=== PATIENT | male | born 1975 | race Caucasian/White ===

== ENCOUNTER 2017-06-23 14:25 | Emergency (ER) | payer BC, OTHER ==
[~2017-06-23] VITALS: Ht 180.3 cm; Wt 81.7 kg
[~2017-06-23 14:25] MED LIST: FAMC1TAB PO; LPR25 PO; NAPR1CAP12 PO; NIAC500T7 PO; SIMV20TA5 PO
[2017-06-23 14:33] VITALS: TEMP 36.5; Ht 180.3 cm; Wt 81.7 kg
[2017-06-23] MEDS ORDERED: ONDANSETRON INJ 2 MG/ML 2 ML VIAL IV STA (14:49)
--- NOTE | 2017-06-23 14:53 | EMERGENCY ROOM VISIT NOTE ---
History First contact with patient: 14:40 Chief Complaint: KIDNEY STONE Stated Complaint: SEVERE KIDNEY PAIN, POSSIBLE KIDNEY STONE History of Present Illness The patient is a 42 year old male who presents to the Emergency Room with complaints of sudden onset of left flank pain that he describes as a sharp, stabbing sensation. He has not taken anything for pain. He also reports urinary frequency. He denies any hematuria. No fever or chills. He denies any nausea or vomiting. The patient has a history of kidney stones and says this feels similar. Review of Systems 10 system review performed and negative unless noted in HPI or below Past Medical/Surgical History Kidney stones, hypertension, hyperlipidemia Social History Smoking Status: Never Smoker Marital Status: Occupation Status: employed Current/Historical Medications Scheduled Famciclovir (Famciclovir), 125 MG PO DAILY Lisinopril (Zestril), 10 MG PO DAILY Metoprolol Tartrate (Lopressor), 25 MG PO DAILY Simvastatin (Zocor), 20 MG PO QPM Tamsulosin Hcl (Flomax), 1 CAP PO DAILY Scheduled PRN Naproxen Sodium (Aleve), 660 MG PO Q12 PRN for Pain Oxycodone/Acetaminophen 5MG/325MG (Percocet 5MG/325MG), 1-2 TABS PO Q4H PRN for Pain Promethazine Hcl (Phenergan), 25 MG PO Q6H PRN for Nausea Physical Exam Vital Signs Date Time Temp Pulse Resp B/P (MAP) Pulse Ox O2 Delivery O2 Flow Rate FiO2 06/23/17 19:38 63 18 151/85 94 06/23/17 17:40 61 18 139/83 94 Room Air 06/23/17 15:06 97 18 99 Room Air 06/23/17 14:33 36.5 86 20 99 Room Air Physical Exam VITALS: Vitals are noted on the nurse's note and reviewed by myself. Vital signs stable. GENERAL: 42-year-old male, in obvious discomfort,, in no acute distress, nondiaphoretic, well-developed well-nourished. SKIN: The skin was without rashes, erythema, edema, or bruising. HEAD: Normocephalic atraumatic. NECK: No JVD. HEART: Regular rate and rhythm without murmurs gallops or rubs. LUNGS: Clear to auscultation bilaterally without wheezes, rales or rhonchi. No accessory muscle use. ABDOMEN: Positive bowel sounds x 4.Soft, nontender, without organomegaly. No guarding or rebound tenderness. Left-sided CVA tenderness noted. MUSCULOSKELETAL: No muscle atrophy, erythema, or edema noted. Strength 5/5 throughout. NEURO: Patient was alert and oriented to person place and time. Normal sensation to touch. No focal neurological deficits. Medical Decision & Procedures ER Provider Diagnostic Interpretation: CT abdomen and pelvis without contrast IMPRESSION: 1. Right-sided nephrolithiasis 2. 6 mm distal left ureteral calculus with minimal secondary obstructive changes 3. Normal appendix 4. Colonic diverticulosis. Minimal infiltration of the peridiverticular fat at the sigmoid level 5. Fat-containing left inguinal hernia Electronically signed by: Augustine Medley M.D. 06/23/2017 3:29 PM Dictated Date/Time: 06/23/2017 3:22 PM The status of this report is Signed. Draft = Not yet reviewed or approved by Radiologist. Signed = Reviewed and approved by Radiologist. Laboratory Results 06/23/17 14:50 Red Blood Count 5.58, Mean Corpuscular Volume 88.4, Mean Corpuscular Hemoglobin 31.0, Mean Corpuscular Hemoglobin Concent 35.1, Mean Platelet Volume 10.0, Neutrophils (%) (Auto) 53.3, Lymphocytes (%) (Auto) 34.2, Monocytes (%) (Auto) 10.4, Eosinophils (%) (Auto) 1.4, Basophils (%) (Auto) 0.5, Neutrophils # (Auto ) 5.36, Lymphocytes # (Auto) 3.44, Monocytes # (Auto) 1.05, Eosinophils # (Auto ) 0.14, Basophils # (Auto) 0.05 06/23/17 14:50 Test 06/23/17 14:50 06/23/17 17:44 White Blood Count 10.06 K/uL (4.8-10.8) Red Blood Count 5.58 M/uL (4.7-6.1) Hemoglobin 17.3 g/dL (14.0-18.0) Hematocrit 49.3 % (42-52) Mean Corpuscular Volume 88.4 fL (80-100) Mean Corpuscular Hemoglobin 31.0 pg (25-34) Mean Corpuscular Hemoglobin Concent 35.1 g/dl (32-36) Platelet Count 279 K/uL (130-400) Mean Platelet Volume 10.0 fL (7.4-10.4) Neutrophils (%) (Auto) 53.3 % Lymphocytes (%) (Auto) 34.2 % Monocytes (%) (Auto) 10.4 % Eosinophils (%) (Auto) 1.4 % Basophils (%) (Auto) 0.5 % Neutrophils # (Auto) 5.36 K/uL (1.4-6.5) Lymphocytes # (Auto) 3.44 K/uL (1.2-3.4) Monocytes # (Auto) 1.05 K/uL (0.11-0.59) Eosinophils # (Auto) 0.14 K/uL (0-0.5) Basophils # (Auto) 0.05 K/uL (0-0.2) RDW Standard Deviation 42.3 fL (36.4-46.3) RDW Coefficient of Variation 13.1 % (11.5-14.5) Immature Granulocyte % (Auto) 0.2 % Immature Granulocyte # (Auto) 0.02 K/uL (0.00-0.02) Anion Gap 6.0 mmol/L (3-11) Est Creatinine Clear Calc Drug Dose 72.2 ml/min Estimated GFR () 70.9 Estimated GFR (Non- 61.2 BUN/Creatinine Ratio 9.7 (10-20) Calcium Level 9.2 mg/dl (8.5-10.1) Urine Color YELLOW Urine Appearance CLEAR (CLEAR) Urine pH 6.0 (4.5-7.5) Urine Specific [place] 1.025 (1.000-1.030) Urine Protein TRACE (NEG) Urine Glucose (UA) NEG (NEG) Urine Ketones TRACE (NEG) Urine Occult Blood 3+ (NEG) Urine Nitrite NEG (NEG) Urine Bilirubin NEG (NEG) Urine Urobilinogen NEG (NEG) Urine Leukocyte Esterase NEG (NEG) Urine Bacteria (Auto) NEG (NEG) Urine RBC 0-4 /hpf (0-4) Urine WBC 0 /hpf (0-5) Urine Epithelial Cells 10-20 /lpf (0-5) Urine Bacteria NEG (NEG) Urine Hyaline Casts 1-5 /lpf (0-5) Urine Mucus PRESENT (NONE PRSENT) Urine Yeast (Auto) (NONE PRSENT) Medications Administered Medications (Trade) Dose Ordered Sig/Niesha Route Start Time Stop Time Status Last Admin Dose Admin Sodium Chloride 1,000 ml @ 999 mls/hr Q1H1M ONCE IV 06/23/17 15:00 06/23/17 16:00 DC 06/23/17 15:00 999 MLS/HR Hydromorphone HCl (Dilaudid Inj) 1 mg ONE ONCE IV 06/23/17 15:00 06/23/17 15:01 DC 06/23/17 15:03 1 MG Ondansetron HCl (Zofran Inj) 4 mg NOW STAT IV 06/23/17 14:49 06/23/17 14:51 DC 06/23/17 15:04 4 MG Ketorolac Tromethamine (Toradol Inj) 30 mg NOW STAT IV 06/23/17 15:21 06/23/17 15:22 DC 06/23/17 15:54 30 MG Hydromorphone HCl (Dilaudid Inj) 2 mg NOW STAT IV 06/23/17 15:43 06/23/17 15:45 DC 06/23/17 15:50 2 MG Sodium Chloride 1,000 ml @ 999 mls/hr Q1H1M ONCE IV 06/23/17 16:00 06/23/17 17:00 DC 06/23/17 17:43 999 MLS/HR Oxycodone/ Acetaminophen (Percocet 5/ 325MG Home Pack) 1 homepack UD ONCE PO 06/23/17 19:15 06/23/17 19:16 DC 06/23/17 19:37 1 HOMEPACK ED Course Patient was seen and examined Vital signs including blood pressure were reviewed medications list was verified with patient Labs were obtained, and a saline lock was established The patient was medicated with Dilaudid and Zofran. He was hydrated with 1 L of normal saline. Upon reevaluation, the patient was still having significant pain. He was given an additional dose of Dilaudid 2 mg IV. He was also order Toradol 30 mg IV. We thoroughly reviewed his results. He voiced understanding and is comfortable being discharged home. He was also given a home pack of Percocet. I reviewed discharge instructions the patient. They voiced understanding and had no further questions. Medical Decision Differential diagnosis: Kidney stone, UTI, pyelonephritis, interstitial cystitis , diverticulitis This patient is a 42-year-old male presents emergency department with left flank pain. He has a history of stones. On exam, he was obviously uncomfortable. His abdomen was benign. Patient has a distal 6 mm stone in the left ureter, which explains his symptoms. There are no signs of infection. Urinalysis is clean. There is no leukocytosis. The patient does have diverticulosis with questionable mild stranding in the area. I do not suspect diverticulitis as he has not had any GI symptoms or fever. He was notified of this result. The patient had excellent pain relief in the emergency department. He was hydrated with 2 L of saline. I believe he is stable to be discharged home with close follow-up. He is in agreement with this plan. He agrees to return to the emergency department with any new, worsening or concerning symptoms This chart was completed in part utilizing [employer] Voice Recognition software. Attempts were made to minimize the grammatical errors, random word insertions, pronoun errors and incomplete sentences. Any formal questions or concerns about the content, text or information contained within the body of this dictation should be directly addressed to the provider for clarification. Medication Reconcilliation Current Medication List: was personally reviewed by me Blood Pressure Screening Patient's blood pressure: Elevated blood pressure Blood pressure disposition: Elevated BP felt to be situational Impression Primary Impression: Ureteral calculus, left Departure Information Dispostion Home / Self-Care Condition GOOD Prescriptions Tamsulosin Hcl (FLOMAX) 0.4 Mg Cap 1 CAP PO DAILY for 7 Days, #7 CAP Prov: Sofya Solis PA-C 06/23/17 Promethazine Hcl (Phenergan) 25 Mg Tab 25 MG PO Q6H Y for Nausea, #20 TAB Prov: Sofya Solis PA-C 06/23/17 Oxycodone/Acetaminophen 5MG/325MG (PERCOCET 5MG/325MG) Tab 1-2 TABS PO Q4H Y for Pain, #15 TAB For Initial Treatment Prov: Sofya Solis PA-C 06/23/17 Referrals Zion Conner D.O. (PCP) Jero Oneill M.D. Patient Instructions Kidney Stones, My [facility] Additional Instructions You were evaluated in the emergency department for flank pain and urinary symptoms. You have a 6 mm kidney stone in the lower left ureter. Ibuprofen 600 mg every 6 hours Percocet 1-2 tabs every 4 hours for severe pain. Do not drink alcohol or drive while taking this medication. This may be taken with ibuprofen, but avoid Tylenol. Please take Flomax 1 tab daily for 1 week It is important to stay well-hydrated. Increase fluids over the next several days. Please take Phenergan 1 tab every 6 hours as needed for nausea Please follow-up with your primary care physician in addition to the urologist. A number has been provided. Do not hesitate to return to the emergency department with any new, worsening or concerning symptoms; especially, fever, uncontrolled pain or vomiting Work Instructions Return To Work: 2 days
[2017-06-23] MEDS ORDERED: SODIUM CHLORIDE 0.9% 1000ML 1,000 ML IV ONE ×2 (15:00→16:00)
[2017-06-23] MEDS ORDERED: HYDROmorphone INJ 1 MG/ML SYR IV ONE ×2 (15:00→15:30)
[2017-06-23 15:02] LABS: BASO % 0.5 %; BASO ABS # 0.05 K/uL (0-0.2); EOS % 1.4 %; EOS ABS # 0.14 K/uL (0-0.5); HEMATOCRIT 49.3 % (42-52); HEMOGLOBIN 17.3 g/dL (14.0-18.0); IG# 0.02 K/uL (0.00-0.02); LYMPH % 34.2 %; LYMPH ABS # 3.44 K/uL (1.2-3.4); MEAN CELL VOLUME 88.4 fL (80-100); MEAN CORPUSCULAR HGB CONC 35.1 g/dl (32-36); MONO % 10.4 %; MONO ABS # 1.05 K/uL (0.11-0.59); NEUT % 53.3 %; NEUT ABS # 5.36 K/uL (1.4-6.5); PLATELET COUNT 279 K/uL (130-400); RED CELL DISTRIBUTION WIDTH CV 13.1 % (11.5-14.5); RED CELL DISTRIBUTION WIDTH SD 42.3 fL (36.4-46.3); WHITE BLOOD COUNT 10.06 K/uL (4.8-10.8)
[2017-06-23] MEDS ORDERED: LISI-461 PO (15:07)
[2017-06-23 15:18] LABS: CALCIUM 9.2 mg/dl (8.5-10.1); CREATININE 1.39 mg/dl (0.60-1.40); POTASSIUM 3.8 mmol/L (3.5-5.1)
[2017-06-23] MEDS ORDERED: KETOROLAC TROMETHAMINE 30 MG/ML VIAL IV STA (15:21)
--- NOTE | 2017-06-23 15:30 | DIAGNOSTIC IMAGING REPORT ---
CT SCAN OF THE ABDOMEN AND PELVIS WITHOUT CONTRAST CLINICAL HISTORY: Left flank pain COMPARISON STUDY: No previous studies for comparison. TECHNIQUE: CT scan of the abdomen and pelvis was performed from the lung bases to the proximal femurs. Images are reviewed in the axial, sagittal, and coronal planes. IV contrast was not administered for this examination. A dose lowering technique was utilized adhering to the principles of ALARA. CT DOSE: 1092.10 mGycm FINDINGS: Lower chest: There are mild basilar atelectatic changes. Liver: There is hepatic steatosis. No focal masses are visualized. Gallbladder: Unremarkable. Spleen: Normal in size and attenuation. Pancreas: Unremarkable. Adrenal glands: Unremarkable. Kidneys: There are 2 mildly hyperdense subcentimeter renal masses measuring 6 mm and 7 mm respectively. 3 right renal calculi are visualized, the largest of which measures 3 mm. There is a 6 mm distal left ureteral calculus just proximal to the UVJ. There is mild secondary ureteral dilatation. There is minor secondary hydroureteronephrosis. Bowel: There are no transition zones indicate bowel obstruction. The appendix appears normal. There is colonic diverticulosis. There is very minimal infiltration of the peridiverticular fat at the sigmoid level. Very minimal diverticulitis cannot be excluded. Peritoneum: There is no intraperitoneal free air or abdominal ascites. There is a fat-containing left inguinal hernia Vasculature: The abdominal aorta is normal in course and caliber. Adenopathy: None. Pelvic viscera: The bladder, and pelvic viscera are unremarkable. Skeletal structures: No destructive osseous lesions are seen. IMPRESSION: 1. Right-sided nephrolithiasis 2. 6 mm distal left ureteral calculus with minimal secondary obstructive changes 3. Normal appendix 4. Colonic diverticulosis. Minimal infiltration of the peridiverticular fat at the sigmoid level 5. Fat-containing left inguinal hernia Electronically signed by: Augustine Medley M.D. 06/23/2017 3:29 PM Dictated Date/Time: 06/23/2017 3:22 PM
[2017-06-23] MEDS ORDERED: HYDROmorphone INJ 2 MG/ML SYR/VIAL IV STA (15:43)
[2017-06-23] MEDS ORDERED: PROM25TA9 PO (19:09)
[2017-06-23] MEDS ORDERED: OXYC-57 PO (19:09)
[2017-06-23] MEDS ORDERED: TAMS0.4C38 PO (19:11)
[2017-06-23] MEDS ORDERED: PERCOCET HOME PACK PO ONE (19:15)
[2017-06-23 19:38] VITALS: BP 151/85; PULSE 63; O2SAT 94
== END 2017-06-23 19:40 | disposition home or self-care (01) ==
LOC: C.EDB 14:26 → C.EDD 19:40
DX: N20.1 Calculus of ureter (principal); K57.30 Diverticulosis of large intestine without perforation or abscess without bleeding; I10 Essential (primary) hypertension; E78.5 Hyperlipidemia, unspecified; Z87.442 Personal history of urinary calculi

== ENCOUNTER 2023-03-09 10:10 | Inpatient (IN) ==
[2023-03-09] MEDS ORDERED: SODIUM CHLORIDE 0.9% 500 ML IV STA (11:20)
[2023-03-09 12:13] LABS: Appearance Urine Cloudy (Clear); Bacteria Urine Automated 1+ (Negative); Blood Urine 3+ (Negative); Color Urine Orange; Glucose Urine UA Negative (Negative); Ketones Urine 1+ (Negative); Leukocyte Esterase Urine 2+ (Negative); Nitrite Urine Positive (Negative); Protein Urine 2+ (Negative); Specific Gravity Urine 1.023 (1.000-1.030); Urobilinogen Urine Negative (Negative); WBC Urine Automated >30 /hpf (0-5)
[2023-03-09 12:19] LABS: Bilirubin Urine 1+ (Negative)
[2023-03-09 12:23] LABS: Basophils # (auto) 0.04 K/uL (0.00-0.20); Basophils % (auto) 0.3 %; Eosinophils # (auto) 0.02 K/uL (0.00-0.50); Eosinophils % (auto) 0.1 %; Hematocrit (blood only) 49.3 % (42.0-52.0); Immature Granulocytes # (auto) 0.07 K/uL (0.01-0.20); Immature Granulocytes % (auto) 0.5 %; Lymphocytes # (auto) 0.65 K/uL (1.20-3.40); Lymphocytes % (auto) 4.8 %; Mean Corpuscular Hemoglobin 28.3 pg (25.0-34.0); Mean Corpuscular Hgb Conc 34.5 g/dL (32.0-36.0); Mean Corpuscular Volume 82.2 fL (80.0-100.0); Monocytes # (auto) 0.86 K/uL (0.11-0.59); Monocytes % (auto) 6.3 %; Neutrophils # (auto) 12.03 K/uL (1.40-6.50); Platelet Count 244 K/uL (130-400); RDW Coefficient of Variation 13.4 % (11.5-14.5); RDW Standard Deviation 39.9 fL (36.4-46.3); White Blood Count 13.67 K/ul (4.8-10.8)
[2023-03-09 12:37] LABS: Albumin Globulin Ratio 1.2 (0.9-2); Albumin Level 4.4 gm/dl (3.4-5.0); BUN Creatinine Ratio 15.8 (10-20); Bilirubin,Total 2.2 mg/dl (0.2-1.0); Calcium 9.3 mg/dl (8.6-10.3); Creatinine Clr Calc Pharmacy 56.6 ml/min; Est GFR (African American) 46.9 ml/min; Est GFR (Non-African American) 40.5 ml/min; Globulin 3.7 gm/dl (2.5-4.0); Potassium 4.5 mmol/L (3.5-5.1); Total Protein 8.1 gm/dl (6.0-8.3)
[2023-03-09] MEDS ORDERED: OPTIRAY 320 100ml IV ONE (13:31)
--- NOTE | 2023-03-09 13:52 | CT Scan Report ---
ABDOMEN AND PELVIS CT WITH IV CONTRAST CT DOSE: 1596.4 mGy.cm HISTORY: Acute right-sided flank pain with nausea and vomiting RIGHT FLANK PAIN, N/V TECHNIQUE: Multiaxial CT images of the abdomen and pelvis were performed following the IV administrat ion of 93 cc of Optiray, A dose lowering technique was utilized adhering to the principles of ALARA. COMPARISON STUDY: 01/04/2022 FINDINGS: Partially imaged consolidative patchy bibasilar opacities, most pronounced in the anteromed ial right lung on image 1 series 3. No free air. Unremarkable spleen, pancreas and adrenal glands. Ch olelithiasis without CT evidence of acute cholecystitis. Hepatic steatosis. Patency of the hepatic an d portal veins. Mild nonspecific bilateral perinephric stranding. Punctate left renal calculus. There are a few subce ntimeter hypodensities within the kidneys which are too small to characterize. 9 mm intermediate atte nuating lesion of the superior pole right kidney is stable in size from the prior study. Punctate non obstructing calculus of the inferior pole right kidney. There is an 8 x 4 x 7 mm calculus within the right ureteropelvic junction. Moderate urothelial thickening and asymmetric adjacent inflammatory str anding without hydronephrosis. Decompressed urinary bladder. Prostate is upper limits of normal in si ze. Small fat filled left inguinal hernia. Unremarkable aorta. There is no bowel obstruction or bowel wall thickening. Colonic diverticulosis. No ascites or free ai r. Normal appendix. Small fat filled umbilical hernia. No acute fracture. Bilateral hip arthroplastie s. IMPRESSION: 1. 8 mm calculus within the right ureteropelvic junction. There is asymmetric right-sided perinephric inflammatory stranding without significant hydronephrosis. 2. Nonobstructing bilateral nephrolithiasis. 3. Mild patchy right lung opacities may represent a mild infectious or inflammatory pneumonitis. 4. No bowel obstruction or bowel wall thickening. 5. Cholelithiasis. ACT 112: Negative or not required by law. The above report was generated using voice recognition software. It may contain grammatical, syntax o r spelling errors. Electronically signed by: Bartolome Garcia M.D. 03/09/2023 1:50 PM
--- NOTE | 2023-03-09 15:10 | Emergency Department Note ---
History of Present Illness General Chief complaint: Urinary Symptoms Stated complaint: DOC REF,KIDNEY STONE,CHILLS Time Seen by Provider: 03/09/23 14:56 History of Present Illness Patient is a 47-year-old male with past medical history significant for hypertension, GERD and dyslipidemia, and past history of kidney stones who presents emergency department from an outpatient urgent care center for evaluation of fever, chills, vomiting and flank pain. Patient reports symptoms started on Wednesday 3 days ago with right-sided flank pain, radiating into the groin and difficulty voiding. The flank pain and the urinary symptoms resolved, but he subsequently developed fever, chills, nausea, vomiting, malaise and body aches. Temperature max at home was 100.4 F but was reportedly 103 degrees at urgent care prior to arrival in the emergency department. He has no further flank pain. Reports dark urine, but no gross hematuria. He has not been able to eat or drink anything for the last 3 days and he feels dehydrated. He has had kidney stones in the past which required stenting and lithotripsy. Home Medications Medication Instructions Recorded Confirmed Type famciclovir 125 mg tablet 125 mg PO QAM 07/06/20 03/09/23 History metoprolol tartrate 25 mg tablet 25 mg PO QAM 07/06/20 03/09/23 History pantoprazole 40 mg tablet,delayed 40 mg PO QAM 07/06/20 03/09/23 History release albuterol sulfate 90 mcg/actuation 2 inh inhalation Q6H PRN shortness 07/09/20 03/09/23 Rx aerosol inhaler of breath or wheezing or cough #18 grams inhalational spacing device #1 ea 07/09/20 Rx (Aerochamber Plus Z Stat spacer) atorvastatin 20 mg tablet 20 mg PO DAILY 03/09/23 03/09/23 History lisinopril 20 mg tablet 20 mg PO DAILY 03/09/23 03/09/23 History tamsulosin 0.4 mg capsule (Flomax) 0.4 mg PO PM 03/09/23 03/09/23 History Allergies Allergy/AdvReac Type Severity Reaction Status Date / Time No Known Allergies Unverified 07/06/20 21:12 Past Med/Surg History Medical History Hyperlipidemia GERD (gastroesophageal reflux disease) Hypertension Surgical History History of total right hip arthroplasty History of total left hip arthroplasty Social History Smoking Status: Never smoker Hx Alcohol Use: Yes Hx Substance Use: No Preferred Language: Greenlandic Communication Ability: Effective Chief Ii Dispatcher Required: No Beliefs That Will Affect Care: None marital status: Current Living Situation: Spouse Feels Safe at Home: Yes Assistive Devices: None Review of Systems A total of 10 systems reviewed and were otherwise negative Physical Exam Vital Signs Vital Signs - 24 hr 03/09/23 11:17 03/09/23 16:03 03/09/23 16:20 Temperature 37.8 C H 36.9 C Temperature Source Temporal Artery Scan Oral Pulse Rate 106 H 74 Pulse Rate [Apical] 101 H Pulse Rhythm Regular Pulse Rhythm [Apical] Pulse Strength [Apical] Respiratory Rate 20 20 19 Respiratory Effort / Characteristics Non-Labored Spontaneous Non-Labored Spontaneous Respiratory Depth Normal Normal Respiratory Pattern Regular Blood Pressure 130/98 124/70 Blood Pressure [Left Arm] Blood Pressure [Right Arm] 124/79 Blood Pressure Mean 108 Blood Pressure Mean [Left Arm] Blood Pressure Mean [Right Arm] 94 Blood Pressure Position [Left Arm] Blood Pressure Position [Right Arm] Semi-fowlers Pulse Oximetry 97 98 95 Oxygen Delivery Method Room Air Room Air Room Air Oxygen Flow Rate Sepsis Recent Fever Within 48 Hours No Sepsis New/Unexplained Change in Mental Status No Sepsis Action Taken by Nursing No Action Required 03/09/23 17:06 03/09/23 17:10 03/09/23 17:20 Temperature 36.6 C Temperature Source Temporal Artery Scan Pulse Rate Pulse Rate [Apical] 105 H 98 H 94 H Pulse Rhythm Pulse Rhythm [Apical] Regular Regular Regular Pulse Strength [Apical] Normal Normal Normal Respiratory Rate 14 18 18 Respiratory Effort / Characteristics Non-Labored Spontaneous Non-Labored Spontaneous Non-Labored Spontaneous Respiratory Depth Normal Normal Normal Respiratory Pattern Regular Regular Regular Blood Pressure Blood Pressure [Left Arm] 90/64 L 102/61 92/64 L Blood Pressure [Right Arm] Blood Pressure Mean Blood Pressure Mean [Left Arm] 72 74 73 Blood Pressure Mean [Right Arm] Blood Pressure Position [Left Arm] Semi-fowlers Semi-fowlers Semi-fowlers Blood Pressure Position [Right Arm] Pulse Oximetry 94 94 95 Oxygen Delivery Method Nasal Cannula Nasal Cannula Nasal Cannula Oxygen Flow Rate 2 2 2 Sepsis Recent Fever Within 48 Hours Sepsis New/Unexplained Change in Mental Status Sepsis Action Taken by Nursing 03/09/23 17:30 03/09/23 17:40 03/09/23 17:45 Temperature 38.0 C H 38.0 C H Temperature Source Oral Oral Pulse Rate Pulse Rate [Apical] 88 93 H 85 Pulse Rhythm Pulse Rhythm [Apical] Regular Regular Regular Pulse Strength [Apical] Normal Normal Normal Respiratory Rate 18 18 18 Respiratory Effort / Characteristics Non-Labored Spontaneous Non-Labored Spontaneous Non-Labored Spontaneous Respiratory Depth Normal Normal Normal Respiratory Pattern Regular Regular Regular Blood Pressure Blood Pressure [Left Arm] 94/66 L 100/65 114/84 Blood Pressure [Right Arm] Blood Pressure Mean Blood Pressure Mean [Left Arm] 75 76 94 Blood Pressure Mean [Right Arm] Blood Pressure Position [Left Arm] Semi-fowlers Semi-fowlers Semi-fowlers Blood Pressure Position [Right Arm] Pulse Oximetry 95 95 95 Oxygen Delivery Method Nasal Cannula Nasal Cannula Nasal Cannula Oxygen Flow Rate 2 2 2 Sepsis Recent Fever Within 48 Hours Sepsis New/Unexplained Change in Mental Status Sepsis Action Taken by Nursing 03/09/23 18:00 03/09/23 18:10 03/09/23 18:20 Temperature 38.0 C H Temperature Source Oral Pulse Rate Pulse Rate [Apical] 145 H 141 H 137 H Pulse Rhythm Pulse Rhythm [Apical] Regular Regular Regular Pulse Strength [Apical] Normal Normal Normal Respiratory Rate 20 28 H 20 Respiratory Effort / Characteristics Non-Labored Spontaneous Non-Labored Spontaneous Non-Labored Spontaneous Respiratory Depth Normal Normal Normal Respiratory Pattern Regular Regular Regular Blood Pressure Blood Pressure [Left Arm] 136/78 129/70 105/73 Blood Pressure [Right Arm] Blood Pressure Mean Blood Pressure Mean [Left Arm] 97 89 83 Blood Pressure Mean [Right Arm] Blood Pressure Position [Left Arm] Semi-fowlers Semi-fowlers Semi-fowlers Blood Pressure Position [Right Arm] Pulse Oximetry 95 93 93 Oxygen Delivery Method Nasal Cannula Nasal Cannula Nasal Cannula Oxygen Flow Rate 2 2 3 Sepsis Recent Fever Within 48 Hours Sepsis New/Unexplained Change in Mental Status Sepsis Action Taken by Nursing 03/09/23 18:30 03/09/23 18:40 03/09/23 18:50 Temperature 39.5 C H Temperature Source Oral Pulse Rate Pulse Rate [Apical] 139 H 138 H 136 H Pulse Rhythm Pulse Rhythm [Apical] Regular Regular Regular Pulse Strength [Apical] Normal Normal Normal Respiratory Rate 20 22 20 Respiratory Effort / Characteristics Non-Labored Spontaneous Non-Labored Spontaneous Non-Labored Spontaneous Respiratory Depth Normal Normal Normal Respiratory Pattern Regular Regular Regular Blood Pressure Blood Pressure [Left Arm] 113/74 116/71 105/69 Blood Pressure [Right Arm] Blood Pressure Mean Blood Pressure Mean [Left Arm] 87 86 81 Blood Pressure Mean [Right Arm] Blood Pressure Position [Left Arm] Semi-fowlers Semi-fowlers Semi-fowlers Blood Pressure Position [Right Arm] Pulse Oximetry 94 95 94 Oxygen Delivery Method Nasal Cannula Nasal Cannula Nasal Cannula Oxygen Flow Rate 3 3 3 Sepsis Recent Fever Within 48 Hours Sepsis New/Unexplained Change in Mental Status Sepsis Action Taken by Nursing 03/09/23 19:00 03/09/23 19:10 03/09/23 19:20 Temperature Temperature Source Pulse Rate Pulse Rate [Apical] 134 H 130 H 123 H Pulse Rhythm Pulse Rhythm [Apical] Regular Regular Regular Pulse Strength [Apical] Normal Normal Normal Respiratory Rate 20 18 18 Respiratory Effort / Characteristics Non-Labored Spontaneous Non-Labored Spontaneous Non-Labored Spontaneous Respiratory Depth Normal Normal Normal Respiratory Pattern Regular Regular Regular Blood Pressure Blood Pressure [Left Arm] 105/59 L 106/69 109/70 Blood Pressure [Right Arm] Blood Pressure Mean Blood Pressure Mean [Left Arm] 74 81 83 Blood Pressure Mean [Right Arm] Blood Pressure Position [Left Arm] Semi-fowlers Semi-fowlers Semi-fowlers Blood Pressure Position [Right Arm] Pulse Oximetry 93 93 97 Oxygen Delivery Method Nasal Cannula Nasal Cannula Nasal Cannula Oxygen Flow Rate 3 3 3 Sepsis Recent Fever Within 48 Hours Sepsis New/Unexplained Change in Mental Status Sepsis Action Taken by Nursing 03/09/23 19:30 Temperature 39.1 C H Temperature Source Oral Pulse Rate Pulse Rate [Apical] 117 H Pulse Rhythm Pulse Rhythm [Apical] Regular Pulse Strength [Apical] Normal Respiratory Rate 20 Respiratory Effort / Characteristics Non-Labored Spontaneous Respiratory Depth Normal Respiratory Pattern Regular Blood Pressure Blood Pressure [Left Arm] 107/69 Blood Pressure [Right Arm] Blood Pressure Mean Blood Pressure Mean [Left Arm] 81 Blood Pressure Mean [Right Arm] Blood Pressure Position [Left Arm] Semi-fowlers Blood Pressure Position [Right Arm] Pulse Oximetry 97 Oxygen Delivery Method Nasal Cannula Oxygen Flow Rate 3 Sepsis Recent Fever Within 48 Hours Sepsis New/Unexplained Change in Mental Status Sepsis Action Taken by Nursing CONSTITUTIONAL: Ill, albeit nontoxic-appearing 47-year-old male who is awake and alert and laying on the gurney in no acute distress. Temperature rechecked at time of exam was 37.3 C orally. EYES: Pupils equal, round, reactive to light and accommodation. EOMs intact without nystagmus. Sclera are anicteric. ENT: Tympanic membranes intact, with normal landmarks. External canals are clear. Oral and nasopharynx are clear. Mucous membranes are moist, no lesions, tongue and gums appear normal. CARDIOVASCULAR: Regular rate and rhythm. Peripheral pulses easy to palpable. RESPIRATORY: Breath sounds equal and clear to auscultation . GI: Bowel sounds are present. Abdomen is soft, nontender, nondistended. No organomegaly. No pulsatile masses. No guarding or rebound. MUSCULOSKELETAL: Full range of motion of extremities x 4 with good strength. No cyanosis, edema, joint tenderness or swelling. No deformity. INTEGUMENTARY: No lesions or rash, normal skin turgor. NEUROLOGICAL: Alert, oriented, and cooperative. Cranial nerves, sensation and strength grossly intact. Normal gait. LYMPH: No lymphadenopathy. Course Course The patient was seen and assessed as above. External medical records were reviewed. Orders were implemented in triage prior to my assessment of the patient, including CBC with differential, CMP, urinalysis and CT scan of the abdomen and pelvis with IV contrast. Laboratory studies per my interpretation note a mildly elevated white count at almost 14,000 with left shift. MIGDALIA noted with creatinine of 1.9. Urine is concerning for infection, with hematuria, leukocyte Estrace and is nitrate positive. CT scan per my interpretation notes a an 8 mm calculus at the right UPJ, with an asymmetric right-sided perinephric inflammatory stranding, no significant hydronephrosis. All laboratory and diagnostic imaging studies were discussed with the patient and his significant other. After review of the information above and other included data, I feel the patient requires inpatient evaluation and surgical evaluation by urology. Patient was ordered IV fluid hydration, 2 L bolus of normal saline solution and ceftriaxone 2 g IV. Blood cultures were obtained. He was treated with Zofran 4 mg IV for nausea. A lactic was also collected and was within normal limits. Case was reviewed with attending physician, Dr. Mendez who agreed with the ED work-up. I did notify ED shoe caser of my concern that the patient would require urology evaluation and possible surgical evaluation and/or inpatient stay. Consultation was placed with urology, patient reviewed with KAREN Mcghee. She came to the emergency department and assessed the patient, and plan is to go to the OR. She requested medical admission, [facility] and they will evaluate the patient for admission after the OR. Differential diagnosis: UTI, pyelonephritis, kidney stone, sepsis, dehydration, electrolyte or metabolic abnormality, acute kidney injury, diverticulitis, prostatitis, appendicitis, among others. Administered Medications Diatrizoate Meglumine (Diatrizoate Meglumine 30% 100ml Vial) 100 ml INSTIL UD PRN PRN Reason: Radiology Use Stop: 03/13/23 16:57 Last Admin: 03/09/23 17:09 Dose: 1 ml Documented By: CTY Discontinued Medications Acetaminophen (Acetaminophen 1000 Mg/100 Ml Iv) Confirm Administered Dose 1,000 mg IV .STK-MED ONE Stop: 03/09/23 18:58 Last Admin: 03/09/23 19:10 Dose: Not Given Documented By: AJSofya Sodium Chloride (Nss) 500 mls @ 999 mls/hr IV .Q31M STA Stop: 03/09/23 11:50 Last Admin: 03/09/23 15:25 Dose: Not Given Documented By: HS Sodium Chloride (Nss) 1,000 mls @ 999 mls/hr IV .Q1H1M TREY Stop: 03/09/23 17:11 Last Admin: 03/09/23 15:19 Dose: 999 mls/hr Documented By: Infusion: 03/09/23 15:19 Dose: Infused Documented By: Admin: 03/09/23 15:19 Dose: 999 mls/hr Documented By: HS Ceftriaxone Sodium (Rocephin) 2,000 mg in 50 mls @ 100 mls/hr IV NOW STA Stop: 03/09/23 15:40 Last Admin: 03/09/23 15:53 Dose: 100 mls/hr Documented By: KMO Acetaminophen (Ofirmev) 1,000 mg in 100 mls @ 400 mls/hr IV NOW STA Stop: 03/09/23 19:07 Last Admin: 03/09/23 18:58 Dose: 400 mls/hr Documented By: JAZMYN Ioversol (Optiray 320 100ml) 93 ml IV ONCE ONE Stop: 03/09/23 13:32 Last Admin: 03/09/23 13:31 Dose: 93 ml Documented By: SIVAKUMAR Ondansetron HCl (Ondansetron Inj 2 Mg/Ml 2 Ml Vial) 4 mg IV NOW STA Stop: 03/09/23 15:13 Last Admin: 03/09/23 15:19 Dose: 4 mg Documented By: RICHY Medical Decision Making Differential Diagnosis See ED course. Medical Records Attestation: I reviewed the patient's medical records. Home Medications Current Medication List: was personally reviewed by me Laboratory Data Attestation: I reviewed the patient's lab results. 03/09/23 11:54 03/09/23 11:54 Lab Results 03/09/23 03/09/23 03/09/23 Range/Units 11:54 11:58 15:40 WBC 13.67 H (4.8-10.8) K/ul RBC 6.00 (4.70-6.10) M/uL Hgb 17.0 (14.0-18.0) g/dl Hct 49.3 (42.0-52.0) % MCV 82.2 (80.0-100.0) fL MCH 28.3 (25.0-34.0) pg MCHC 34.5 (32.0-36.0) g/dL RDW Std Deviation 39.9 (36.4-46.3) fL RDW Coeff of Yony 13.4 (11.5-14.5) % Plt Count 244 (130-400) K/uL MPV 10.0 (9.4-12.4) fL Immature Gran % (Auto) 0.5 % Neut % (Auto) 88.0 % Lymph % (Auto) 4.8 % [place] % (Auto) 6.3 % Eos % (Auto) 0.1 % Baso % (Auto) 0.3 % Neut # (Auto) 12.03 H (1.40-6.50) K/uL Lymph # (Auto) 0.65 L (1.20-3.40) K/uL [place] # (Auto) 0.86 H (0.11-0.59) K/uL Eos # (Auto) 0.02 (0.00-0.50) K/uL Baso # (Auto) 0.04 (0.00-0.20) K/uL Immature Gran # (Auto) 0.07 (0.01-0.20) K/uL Sodium 134 L (136-145) mmol/L Potassium 4.5 (3.5-5.1) mmol/L Chloride 100 (98-107) mmol/L Carbon Dioxide 20 L (21-32) mmol/L Anion Gap 14 H (3-11) BUN 30 H (6-23) mg/dl Creatinine 1.90 H (0.6-1.4) mg/dl Est Cr Clr Drug Dosing 56.6 ml/min Est GFR ( Amer) 46.9 ml/min Est GFR (Non-Af Amer) 40.5 ml/min BUN/Creatinine Ratio 15.8 (10-20) Glucose 142 H (70-99(Fasting)) mg/dl Lactate 2.0 (0.4-2.0) mmol/L Calcium 9.3 (8.6-10.3) mg/dl Total Bilirubin 2.2 H (0.2-1.0) mg/dl AST 37 (13-39) U/L ALT 22 (7-52) U/L Alkaline Phosphatase 92 (34-104) U/L Total Protein 8.1 (6.0-8.3) gm/dl Albumin 4.4 (3.4-5.0) gm/dl Globulin 3.7 (2.5-4.0) gm/dl Albumin/Globulin Ratio 1.2 (0.9-2) Urine Color [place] Urine Appearance Cloudy A (Clear) Urine pH 5.0 (4.5-7.5) Ur Specific [place] 1.023 (1.000-1.030) Urine Protein 2+ H (Negative) Urine Glucose (UA) Negative (Negative) Urine Ketones 1+ H (Negative) Urine Blood 3+ H (Negative) Urine Nitrite Positive A (Negative) Urine Bilirubin 1+ H (Negative) Urine Urobilinogen Negative (Negative) Ur Leukocyte Esterase 2+ H (Negative) Urine WBC (Auto) >30 H (0-5) /hpf Urine RBC (Auto) 5-10 H (0-4) /hpf U Hyaline Cast (Auto) 10-30 H (0-5) /lpf U Epithel Cells (Auto) 10-20 H (0-5) /lpf Urine Bacteria (Auto) 1+ H (Negative) Imaging Data Attestation: I personally reviewed and interpreted this imaging study as follows: Radiologist's Impression: Retrograde Pyelogram 03/09/23 00:00 FL retrograde includes kub CLINICAL HISTORY: CYSTO/RETROGRADE STENT RT COMPARISON STUDY: Abdomen and pelvis CT 03/09/2023. FLUOROSCOPY TIME: 19 seconds FLUOROSCOPY IMAGES: 4 Ka,r: 2.8 mGy FINDINGS: Retrograde placement of a right ureteral stent. Only the proximal portion of the stent is identified and appears in good position. IMPRESSION: Fluoroscopic assistance as above. ACT 112: Negative or not required by law. Electronically signed by: Willi Real M.D. 03/09/2023 7:21 PM Abdomen/Pelvis CT 03/09/23 12:[address] WITH IV CONTRAST CT DOSE: 1596.4 mGy.cm HISTORY: Acute right-sided flank pain with nausea and vomiting RIGHT FLANK PAIN, N/V TECHNIQUE: Multiaxial CT images of the abdomen and pelvis were performed following the IV administration of 93 cc of Optiray, A dose lowering technique was utilized adhering to the principles of ALARA. COMPARISON STUDY: 01/04/2022 FINDINGS: Partially imaged consolidative patchy bibasilar opacities, most pronounced in the anteromedial right lung on image 1 series 3. No free air. Unremarkable spleen, pancreas and adrenal glands. Cholelithiasis without CT evidence of acute cholecystitis. Hepatic steatosis. Patency of the hepatic and portal veins. Mild nonspecific bilateral perinephric stranding. Punctate left renal calculus. There are a few subcentimeter hypodensities within the kidneys which are too small to characterize. 9 mm intermediate attenuating lesion of the superior pole right kidney is stable in size from the prior study. Punctate nonobstructing calculus of the inferior pole right kidney. There is an 8 x 4 x 7 mm calculus within the right ureteropelvic junction. Moderate urothelial thickening and asymmetric adjacent inflammatory stranding without hydronephrosis. Decompressed urinary bladder. Prostate is upper limits of normal in size. Small fat filled left inguinal hernia. Unremarkable aorta. There is no bowel obstruction or bowel wall thickening. Colonic diverticulosis. No ascites or free air. Normal appendix. Small fat filled umbilical hernia. No acute fracture. Bilateral hip arthroplasties. IMPRESSION: 1. 8 mm calculus within the right ureteropelvic junction. There is asymmetric right-sided perinephric inflammatory stranding without significant hydronephrosis. 2. Nonobstructing bilateral nephrolithiasis. 3. Mild patchy right lung opacities may represent a mild infectious or inflammatory pneumonitis. 4. No bowel obstruction or bowel wall thickening. 5. Cholelithiasis. ACT 112: Negative or not required by law. The above report was generated using voice recognition software. It may contain grammatical, syntax or spelling errors. Electronically signed by: Bartolome Garcia M.D. 03/09/2023 1:50 PM MDM Narrative See ED course. Impression & Plan Calculus of proximal right ureter, Sepsis secondary to UTI Discharge Plan Visit Data Chief Complaint: Urinary Symptoms Stated Complaint: DOC REF,KIDNEY STONE,CHILLS ED Provider: Harvey Mendez ED Midlevel Provider: Sivakumar Shannon Discharge Problem: Calculus of proximal right ureter, Sepsis secondary to UTI Patient Disposition: Admitted As Inpatient Discharge Instructions Interventions: ED Discharge Assessment Last Done: 03/09/23 16:03 Prescriptions Prescriptions: No Action famciclovir 125 mg tablet 125 mg PO QAM pantoprazole 40 mg tablet,delayed release (DR/EC) 40 mg PO QAM metoprolol tartrate 25 mg tablet 25 mg PO QAM albuterol sulfate 90 mcg/actuation HFA aerosol inhaler 2 inh inhalation Q6H PRN (Reason: shortness of breath or wheezing or cough) Qty: 18 0RF (DME) Aerochamber Plus Z Stat Spacer See Rx Instructions .ROUTE .MEDSUPPLY Qty: 1 0RF Rx Instructions: As directed with albuterol atorvastatin 20 mg tablet 20 mg PO DAILY lisinopril 20 mg tablet 20 mg PO DAILY tamsulosin [Flomax] 0.4 mg capsule 0.4 mg PO PM Rx Instructions: 30 mins after evening meal
[2023-03-09] MEDS ORDERED: cefTRIAXone SODIUM 2,000 MG/50 ML BAG IV STA (15:11)
[2023-03-09] MEDS ORDERED: ONDANSETRON INJ 2 MG/ML 2 ML VIAL IV STA (15:12)
[2023-03-09] MEDS: SODIUM CHLORIDE 0.9% 1,000 ML IV SCH (15:19)
--- NOTE | 2023-03-09 15:57 | Urology Consultation ---
Date of Consultation March 09, 2023 Assessment & Plan (1) Calculus of proximal right ureter: This is a 47-year-old male with history of nephrolithiasis who presented to the emergency department with right flank pain, nausea, vomiting, fever and chills. CT abdomen pelvis demonstrated an 8 mm right UPJ stone Patient with intermittent fever/chills, Tmax 103 earlier today, tachycardic in the emergency department Labs show creatinine 1.9, WBC 13.67, hemoglobin 17.0 Urinalysis suspicious for infection with positive nitrates and bacteria Urine and blood cultures are pending He was given IV ceftriaxone in the emergency department Recommend continue broad-spectrum antibiotics and narrow per sensitivity data when available Currently feels better since arrival and appears pretty well on exam Given his right UPJ stone, fever, leukocytosis, tachycardia and suspected UTI, recommend right ureteral stent placement today - patient agreeable Proceed to the OR today for cystoscopy, retrograde pyelogram and right ureteral stent placement Risks and benefits of procedure to be reviewed with patient by Dr. Oneill Supervising Physician Co-Signing Physician Notes Agree with above. Although he is not having right flank pain, he has other symptoms concerning for an infected kidney stone. We discussed his findings and we will plan for cysto, right ureteral stent placement today. History of Present Illness History of Present Illness This is a 47-year-old male with history of nephrolithiasis who presented to the emergency department this afternoon with several day history of right flank pain, nausea, vomiting, fever and chills. On arrival, temperature was 37.8, tachycardic, but otherwise hemodynamically stable. Lab work showed creatinine 1.90, WBC 13.67, hemoglobin 17.0. Urinalysis suspicious for infection with positive nitrates, 2+ leukocyte esterase, >30 WBC, 5-10 RBC, 1+ bacteria. Urine and blood cultures obtained. CT abdomen and pelvis reviewed and notable for an 8 mm calculus within the right UPJ, right sided perinephric stranding, no significant hydronephrosis, nonobstructing bilateral nephrolithiasis. He was treated with IV fluids, ceftriaxone and ondansetron in the emergency department. Patient seen and examined in the emergency department. He is awake, alert and resting in bed. at bedside. He reports intermittent right flank discomfort since 3-4 days ago. He reports nausea and vomiting at home as well as fever and chills. He was evaluated at urgent care earlier today and had a temperature of 103. No dysuria or hematuria. No chest pain or shortness of breath. He is NPO. Prior history of nephrolithiasis. He had ureteroscopy and laser lithotripsy about 3 to 4 years ago at [facility]. Allergies Allergy/AdvReac Type Severity Reaction Status Date / Time No Known Allergies Unverified 07/06/20 21:12 Home Medications Medication Instructions Recorded Confirmed Type famciclovir 125 mg tablet 125 mg PO QAM 07/06/20 07/06/20 History lisinopril 10 mg tablet 10 mg PO QAM 07/06/20 07/06/20 History metoprolol tartrate 25 mg tablet 25 mg PO QAM 07/06/20 07/06/20 History ondansetron 8 mg disintegrating 8 mg PO Q8H PRN Nausea And Vomiting 07/06/20 07/06/20 History tablet pantoprazole 40 mg tablet,delayed 40 mg PO QAM 07/06/20 07/06/20 History release simvastatin 20 mg tablet 20 mg PO QAM 07/06/20 07/06/20 History albuterol sulfate 90 mcg/actuation 2 inh inhalation Q6H PRN shortness 07/09/20 Rx aerosol inhaler of breath or wheezing or cough #18 grams inhalational spacing device #1 ea 07/09/20 Rx (Aerochamber Plus Z Stat spacer) oxycodone 5 mg tablet 5 mg PO Q6H PRN pain #14 tabs 01/04/22 Rx tamsulosin 0.4 mg capsule (Flomax) 0.4 mg PO DAILY #10 caps 01/04/22 Rx Patient History Medical History Hyperlipidemia GERD (gastroesophageal reflux disease) Hypertension Surgical History History of total right hip arthroplasty History of total left hip arthroplasty Social History Smoking Status: Never smoker Hx Alcohol Use: Yes Hx Substance Use: No Preferred Language: Albanian Communication Ability: Effective Enrollment Management Manager Required: No Beliefs That Will Affect Care: None marital status: Current Living Situation: Spouse Feels Safe at Home: Yes Assistive Devices: None Review of Systems Review of Systems: All systems reviewed & are unremarkable except as noted in HPI & below Physical Exam 2 Physical Exam: General: no acute distress, nontoxic HEENT: Normocephalic, mucous membranes moist Pulmonary: Nonlabored respirations CV: tachycardic Abdomen: Nondistended Extremities: Moves all 4 spontaneously Neuro: No gross deficits Psych: alert and oriented, normal mood Skin: Warm, dry, no rashes noted : no CVA tenderness Results & Data Vital Signs (Past 12 Hours) Vital Signs Temp Pulse Resp BP Pulse Ox O2 Del Method 03/09/23 11:17 37.8 C H 106 H 20 130/98 97 Room Air PG Care Time/CCT Total # of Minutes Spent Total Time Spent with Patient: Total time spent is greater than 50% in coordination of care (as documented) at patient's floor/unit and/or counseling patient: Coding Level of Care Code 35139 IN/OBS CONSULT LVL 4,60M Diagnoses Calculus of proximal right ureter N20.1
[2023-03-09] MEDS ORDERED: fentaNYL citrate PF 100 MCG/2 ML VIAL ONE (16:07)
[2023-03-09] MEDS ORDERED: ONDANSETRON INJ 2 MG/ML 2 ML VIAL ONE (16:45)
[2023-03-09] MEDS ORDERED: LACTATED RINGER'S 1,000 ML IV SCH (16:45)
[2023-03-09] MEDS ORDERED: LIDOCAINE 2% 2 ML VIAL/AMP(20MG/ML) INFIL ONE (16:45)
[2023-03-09] MEDS ORDERED: KETOROLAC 30 MG/ML VIAL ONE (16:45)
[2023-03-09] MEDS ORDERED: PROPOFOL IV EMULSION 10 MG/ML 20 ML VIAL IV ONE (16:45)
--- NOTE | 2023-03-09 16:46 | Anesthesiology Consultation ---
Date of Service March 09, 2023 Assessment & Plan Chart Review Chart Review: Acceptable Risk for Surgery Consults Requested none History Surgery Operation Date: 03/09/23 12:10 Proposed Procedures p Cystoscopy, Retrograde Pyelogram, Right Ureteral Stent Placement(Right) - Jero Oneill MD Height/Weight Height: 5 ft 11 in Weight: 99.8 kg Allergies Allergy/AdvReac Type Severity Reaction Status Date / Time No Known Allergies Unverified 07/06/20 21:12 Medications Home Medications Medication Instructions Recorded Confirmed Last Taken famciclovir 125 mg tablet 125 mg PO QAM 07/06/20 07/06/20 07/06/20 lisinopril 10 mg tablet 10 mg PO QAM 07/06/20 07/06/20 07/06/20 metoprolol tartrate 25 mg tablet 25 mg PO QAM 07/06/20 07/06/20 07/06/20 ondansetron 8 mg disintegrating 8 mg PO Q8H PRN Nausea And Vomiting 07/06/20 07/06/20 Unknown tablet pantoprazole 40 mg tablet,delayed 40 mg PO QAM 07/06/20 07/06/20 07/06/20 release simvastatin 20 mg tablet 20 mg PO QAM 07/06/20 07/06/20 07/06/20 albuterol sulfate 90 mcg/actuation 2 inh inhalation Q6H PRN shortness 07/09/20 Unknown aerosol inhaler of breath or wheezing or cough #18 grams inhalational spacing device #1 ea 07/09/20 Unknown (Aerochamber Plus Z Stat spacer) oxycodone 5 mg tablet 5 mg PO Q6H PRN pain #14 tabs 01/04/22 Unknown tamsulosin 0.4 mg capsule (Flomax) 0.4 mg PO DAILY #10 caps 01/04/22 Unknown Active Medications Generic Name Dose Route Start Last Admin Trade Name Freq PRN Reason Stop Dose Admin Sodium Chloride 1,000 mls @ 999 mls/hr 03/09/23 15:11 03/09/23 15:19 Nss IV 03/09/23 17:11 999 mls/hr .Q1H1M TREY Administration NPO Date Last Intake of Fluids: 03/08/23 Date Last Intake of Solids: 03/08/23 Past Medical History Medical History Hyperlipidemia GERD (gastroesophageal reflux disease) Hypertension Past Surgical History Surgical History History of total right hip arthroplasty History of total left hip arthroplasty Social History Smoking Status: Never smoker Hx Alcohol Use: Yes alcohol intake frequency: a few times a month Hx Substance Use: No substance use type: does not use Physical Exam Vital Signs Last Vital Signs Temp 36.9 C 03/09/23 16:20 Pulse 101 H 03/09/23 16:20 Resp 19 03/09/23 16:20 BP 124/79 03/09/23 16:20 Pulse Ox 95 03/09/23 16:20 O2 Del Method Room Air 03/09/23 16:20 Testing Laboratory Results 03/09/23 11:54 03/09/23 11:54 Urine Color Zullinger 03/09/23 11:58 Urine Appearance Cloudy (Clear) A 03/09/23 11:58 Urine pH 5.0 (4.5-7.5) 03/09/23 11:58 Ur Specific Keller 1.023 (1.000-1.030) 03/09/23 11:58 Urine Protein 2+ (Negative) H 03/09/23 11:58 Urine Glucose (UA) Negative (Negative) 03/09/23 11:58 Urine Ketones 1+ (Negative) H 03/09/23 11:58 Urine Nitrite Positive (Negative) A 03/09/23 11:58 Ur Leukocyte Esterase 2+ (Negative) H 03/09/23 11:58 Urine WBC (Auto) >30 /hpf (0-5) H 03/09/23 11:58 Urine RBC (Auto) 5-10 /hpf (0-4) H 03/09/23 11:58 U Hyaline Cast (Auto) 10-30 /lpf (0-5) H 03/09/23 11:58 U Epithel Cells (Auto) 10-20 /lpf (0-5) H 03/09/23 11:58 Urine Bacteria (Auto) 1+ (Negative) H 03/09/23 11:58
[2023-03-09] MEDS ORDERED: PROMETHAZINE HCL 12.5 MG in SODIUM CHLORIDE 0.9% 50 ML IV PRN (16:47)
[2023-03-09] MEDS ORDERED: ePHEDrine sulfate 50 MG/ML AMP IV PRN (16:47)
[2023-03-09] MEDS ORDERED: ONDANSETRON INJ 2 MG/ML 2 ML VIAL IV PRN ×2 (16:47→20:00)
[2023-03-09] MEDS ORDERED: fentaNYL citrate PF 100 MCG/2 ML VIAL IV PRN (16:47)
[2023-03-09] MEDS ORDERED: ATROPINE SULFATE 0.1 MG/ML 10ML SYR IV PRN (16:47)
[2023-03-09] MEDS ORDERED: HYDROmorphone INJ 2 MG/ML SYR/VIAL IV PRN (16:47)
[2023-03-09] MEDS ORDERED: DIATRIZOATE MEGLUMINE 30% 100ML VIAL INSTIL PRN (16:58)
--- NOTE | 2023-03-09 17:05 | Operative Report ---
PG Post Operative Report Pre & Post Diagnosis Operation Date: 03/09/23 12:10 Pre-Op Diagnosis: Calculus of proximal right ureter. Post-Op Diagnosis: Calculus of proximal right ureter. I identified the patient and participated in the time-out.: Yes Procedure Operation Date: 03/09/23 12:10 Actual Procedures p Cystoscopy, Retrograde Pyelogram, Right Ureteral Stent Placement(Right) - Jero Oneill MD Surgeon Jero Oneill MD Button Tacker none Estimated Blood Loss 0 Findings Consistent with Post-Op Diagnosis Specimens none Description of Procedure The patient was identified in the preoperative holding area, appropriate informed consents were reviewed and completed and the patient was transferred to the operative suite. Upon arrival, appropriate antibiotics and anesthesia were administered and the patient was placed in dorsal lithotomy position and prepped and draped in sterile fashion. To begin the case I passed a 22 Moldovan cystoscope with 30 degree lens. Inspection revealed a healthy-appearing urethra and a small prostate. Inspection of the bladder was conducted and revealed no mucosal abnormalities, stones, tumors. He had minimal erythema around the right UO consistent with an obstructing and infected stone. Following my full inspection of the bladder I cannulated the right UO with a sensor wire which advanced the kidney without difficulty. Of note, on his CT it appears that the ureter may be anterior to the vascular structures of the kidney and have a relatively high insertion into the kidney. This seem to be the case as the wire passed. He still had contrast within the kidney providing nephrogram and the insertion appears to be quite high. I cannot definitively identify the stone although I suspect there is a calcification that may be the stone in this area of the upper pole of the kidney. I was able to coil wire in the upper pole and then placed a 6 Moldovan by 26 cm double-J stent. There was good drainage through the stent. I then drained his bladder and reversed him from anesthesia and he was taken to the recovery room in stable condition. There were no complications I attest to the content of the Intraoperative Record and any orders documented therein. Any exceptions are noted below.
--- NOTE | 2023-03-09 17:32 | Anesthesiology Progress Note ---
Date of Service March 09, 2023 Anesthesia Post Procedure Vital Signs Vital Signs: Temp Pulse Pulse Resp BP BP BP 03/09/23 17:20 94 H 18 92/64 L 03/09/23 17:10 98 H 18 102/61 03/09/23 17:06 36.6 C 105 H 14 90/64 L 03/09/23 16:20 36.9 C 101 H 19 124/79 03/09/23 16:03 74 20 124/70 03/09/23 11:17 37.8 C H 106 H 20 130/98 Pulse Ox O2 Del Method O2 Flow Rate 03/09/23 17:20 95 Nasal Cannula 2 03/09/23 17:10 94 Nasal Cannula 2 03/09/23 17:06 94 Nasal Cannula 2 03/09/23 16:20 95 Room Air 03/09/23 16:03 98 Room Air 03/09/23 11:17 97 Room Air Transfer of Care Handoff Completed per policy Notes Mental Status: alert / awake / arousable Patient Amnestic to Procedure: Yes Nausea / Vomiting: adequately controlled Pain: adequately controlled Airway Patency, RR, SpO2: stable & adequate BP & HR: stable & adequate Hydration State: stable & adequate Anesthetic Complications: no major complications apparent and Pt Satisfied with anesthetic care
[2023-03-09] MEDS ORDERED: ACETAMINOPHEN 1,000 MG/100 ML VIAL IV STA (18:53)
--- NOTE | 2023-03-09 18:55 | History & Physical Report ---
Date of Service March 09, 2023 Assessment & Plan (1) Sepsis secondary to UTI: Plan: Lactate 1.0 - total NSS 1.5L bolus given pre-operatively due to hypotension/tachycardia, additional 1L LR during procedure Ongoing tachycardia with mild hypotension ?more fever related however, will give additional 1L LR bolus then Plama-lyte overnight @ 150ml/hr, if hypotensive overnight will need Levophed Ceftriaxone 2g IV daily - no prior history of pseudomonas or resistant organisms s/p emergent right ureteral stent insertion 03/[address] Oneill Hold tamsulosin tonight due to hypotension (2) Calculus of proximal right ureter: Plan: Appreciate urology management (3) MIGDALIA (acute kidney injury): Plan: Post obstructive - now should be relieved with stent insertion, repeat labs now to see if anion gap and bicarb resolved or whether he requires sodium bicarb overnight Somewhat pre-renal in addition (see IV fluids above) (4) Hypoxia: Plan: Post procedure - suspected atelectasis CXR ordered (5) Hyperlipidemia: Plan: Continue atorvastatin daily (6) GERD (gastroesophageal reflux disease): Plan: Continue pantoprazole 40mg PO daily (7) Hypertension: Plan: Continue metoprolol daily with hold parameters, vomited medications this morning which may explain some of his tachycardia Plan VTE Prophylaxis - low risk Diet - clear liquids post procedure, advance as tolerated Disposition - admit to PCU Admission and Anticipated Discharge Date Admission Date: March 10, 2023 History of Present Illness Chief Complaint: Right flank pain, nausea, vomiting, fever Primary Care Provider: Zion Conner DO Mark Velez is a 47 year old male who presents to the ER due to nausea, vomiting, fever and flank pain. He reports the flank pain being worse on Wednesday when he felt he had a kidney stone as it felt like previous stones but was trying to manage it at home. Pain would radiate to the groin with difficulty voiding. The flank pain eased up but then developed fever, chills, nausea, vomiting and generalized body aches. T max 103 degrees Fahrenheit at urgent care who advised him to come to the ER. No hematuria. He has had multiple kidney stones in the past requiring stenting and lithotripsy. He took his morning medications today but vomited them all up. The patient was seen post operatively. No current nausea. Pain improved. Mentating normally. No dizziness. Urinated since the operation already Allergies Allergy/AdvReac Type Severity Reaction Status Date / Time No Known Allergies Unverified 07/06/20 21:12 Home Medications Medication Instructions Recorded Confirmed Type famciclovir 125 mg tablet 125 mg PO QAM 07/06/20 03/09/23 History metoprolol tartrate 25 mg tablet 25 mg PO QAM 07/06/20 03/09/23 History pantoprazole 40 mg tablet,delayed 40 mg PO QAM 07/06/20 03/09/23 History release albuterol sulfate 90 mcg/actuation 2 inh inhalation Q6H PRN shortness 07/09/20 03/09/23 Rx aerosol inhaler of breath or wheezing or cough #18 grams inhalational spacing device #1 ea 07/09/20 Rx (Aerochamber Plus Z Stat spacer) atorvastatin 20 mg tablet 20 mg PO DAILY 03/09/23 03/09/23 History lisinopril 20 mg tablet 20 mg PO DAILY 03/09/23 03/09/23 History tamsulosin 0.4 mg capsule (Flomax) 0.4 mg PO PM 03/09/23 03/09/23 History Past Med/Surg History Medical History (Updated 03/10/23 @ 06:24 by Vik Rutherford MD) Hyperlipidemia GERD (gastroesophageal reflux disease) Hypertension Surgical History History of total right hip arthroplasty History of total left hip arthroplasty Social History Smoking Status: Never smoker Second Hand Exposure: No; Do You Dip or Chew Tobacco: No; Hx Alcohol Use: Yes Alcohol type: beer Hx Substance Use: No Preferred Language: Cypriot Communication Ability: Effective Bpo Specialist Required: No Beliefs That Will Affect Care: None marital status: Current Living Situation: Spouse Other Information That Helps Us Care for You: No Feels Safe at Home: Yes Safety Concerns: Feels Safe At This Time Assistive Devices: None Review of Systems Review of Systems: All systems reviewed & are unremarkable except as noted in HPI & below Physical Exam Constitutional: WD/WN, vitals as above Eyes: + anicteric sclerae; normal pupil size ENMT: external ear and nose normal, oropharynx normal Respiratory: normal respiratory effort, lungs clear to auscultation Cardiovascular: Rate/Rhythm: regular rhythm and + tachycardic Heart Sounds: no murmur Extremities: normal capillary refill; no calf tenderness and no pedal edema Gastrointestinal (Abdomen): normal bowel sounds, soft, nontender, no hepatosplenomegaly Musculoskeletal: no cyanosis or clubbing, extremities motor strength 5/5 Skin: no rashes, warm and dry Neurologic: moves all extremities and awake; not confused Psychiatric: A+Ox3, euthymic affect Genitourinary: + CVA tenderness (right) Results & Data Results & Data Vital Signs (Past 12 Hours) Vital Signs Temp Pulse Pulse Resp BP BP BP 03/09/23 18:50 39.5 C H 136 H 20 105/69 03/09/23 18:40 138 H 22 116/71 03/09/23 18:30 139 H 20 113/74 03/09/23 18:20 137 H 20 105/73 03/09/23 18:10 141 H 28 H 129/70 03/09/23 18:00 38.0 C H 145 H 20 136/78 03/09/23 17:45 38.0 C H 85 18 114/84 03/09/23 17:40 38.0 C H 93 H 18 100/65 03/09/23 17:30 88 18 94/66 L 03/09/23 17:20 94 H 18 92/64 L 03/09/23 17:10 98 H 18 102/61 03/09/23 17:06 36.6 C 105 H 14 90/64 L 03/09/23 16:20 36.9 C 101 H 19 124/79 03/09/23 16:03 74 20 124/70 03/09/23 11:17 37.8 C H 106 H 20 130/98 Pulse Ox O2 Del Method O2 Flow Rate 03/09/23 18:50 94 Nasal Cannula 3 03/09/23 18:40 95 Nasal Cannula 3 03/09/23 18:30 94 Nasal Cannula 3 03/09/23 18:20 93 Nasal Cannula 3 03/09/23 18:10 93 Nasal Cannula 2 03/09/23 18:00 95 Nasal Cannula 2 03/09/23 17:45 95 Nasal Cannula 2 03/09/23 17:40 95 Nasal Cannula 2 03/09/23 17:30 95 Nasal Cannula 2 03/09/23 17:20 95 Nasal Cannula 2 03/09/23 17:10 94 Nasal Cannula 2 03/09/23 17:06 94 Nasal Cannula 2 03/09/23 16:20 95 Room Air 03/09/23 16:03 98 Room Air 03/09/23 11:17 97 Room Air Laboratory Results Abnormal lab results 03/09/23 03/09/23 03/09/23 Range/Units 11:54 11:58 20:32 WBC 13.67 H (4.8-10.8) K/ul Neut # (Auto) 12.03 H (1.40-6.50) K/uL Lymph # (Auto) 0.65 L (1.20-3.40) K/uL Fannin # (Auto) 0.86 H (0.11-0.59) K/uL Sodium 134 L 134 L (136-145) mmol/L Carbon Dioxide 20 L (21-32) mmol/L Anion Gap 14 H (3-11) BUN 30 H 39 H (6-23) mg/dl Creatinine 1.90 H 2.21 H D (0.6-1.4) mg/dl Glucose 142 H 128 H (70-99(Fasting)) mg/dl Calcium 8.1 L (8.6-10.3) mg/dl Total Bilirubin 2.2 H (0.2-1.0) mg/dl Urine Appearance Cloudy A (Clear) Urine Protein 2+ H (Negative) Urine Ketones 1+ H (Negative) Urine Blood 3+ H (Negative) Urine Nitrite Positive A (Negative) Urine Bilirubin 1+ H (Negative) Ur Leukocyte Esterase 2+ H (Negative) Urine WBC (Auto) >30 H (0-5) /hpf Urine RBC (Auto) 5-10 H (0-4) /hpf U Hyaline Cast (Auto) 10-30 H (0-5) /lpf U Epithel Cells (Auto) 10-20 H (0-5) /lpf Urine Bacteria (Auto) 1+ H (Negative) Diagnostic Findings ABDOMEN AND PELVIS CT WITH IV CONTRAST CT DOSE: 1596.4 mGy.cm HISTORY: Acute right-sided flank pain with nausea and vomiting RIGHT FLANK PAIN, N/V TECHNIQUE: Multiaxial CT images of the abdomen and pelvis were performed following the IV administration of 93 cc of Optiray, A dose lowering technique was utilized adhering to the principles of ALARA. COMPARISON STUDY: 01/04/2022 FINDINGS: Partially imaged consolidative patchy bibasilar opacities, most pronounced in the anteromedial right lung on image 1 series 3. No free air. Unremarkable spleen, pancreas and adrenal glands. Cholelithiasis without CT evidence of acute cholecystitis. Hepatic steatosis. Patency of the hepatic and portal veins. Mild nonspecific bilateral perinephric stranding. Punctate left renal calculus. There are a few subcentimeter hypodensities within the kidneys which are too small to characterize. 9 mm intermediate attenuating lesion of the superior pole right kidney is stable in size from the prior study. Punctate nonobstructing calculus of the inferior pole right kidney. There is an 8 x 4 x 7 mm calculus within the right ureteropelvic junction. Moderate urothelial thickening and asymmetric adjacent inflammatory stranding without hydronephrosis. Decompressed urinary bladder. Prostate is upper limits of normal in size. Small fat filled left inguinal hernia. Unremarkable aorta. There is no bowel obstruction or bowel wall thickening. Colonic diverticulosis. No ascites or free air. Normal appendix. Small fat filled umbilical hernia. No acute fracture. Bilateral hip arthroplasties. IMPRESSION: 1. 8 mm calculus within the right ureteropelvic junction. There is asymmetric right-sided perinephric inflammatory stranding without significant hydronephrosis. 2. Nonobstructing bilateral nephrolithiasis. 3. Mild patchy right lung opacities may represent a mild infectious or inflammatory pneumonitis. 4. No bowel obstruction or bowel wall thickening. 5. Cholelithiasis. Medications Administered ER Medications Given: Normal saline 500ml IV bolus Normal saline 1000ml IV bolus Ceftriaxone 2000mg IV Ondansetron 4mg IV ECG Rate (beats per minute): 130 Rhythm: sinus tachycardia Findings: no acute ischemic change Comparison ECG Date: from (December 20, 2009) Change: the following changes noted (Rate increased only) Code Status & VTE Plan Code Status Full VTE Prophylaxis Plan VTE Prophylaxis will be ordered: No PG Care Time/CCT Total # of Minutes Spent Total Time Spent with Patient: Total time spent is greater than 50% in coordination of care (as documented) at patient's floor/unit and/or counseling patient: Coding Level of Care Code 75715 INT INP/OBS CARE 2/55MIN Diagnoses Sepsis secondary to UTI A41.9; N39.0 Calculus of proximal right ureter N20.1 MIGDALIA (acute kidney injury) N17.9 Hypoxia R09.02 Hyperlipidemia E78.5 GERD (gastroesophageal reflux disease) K21.9 Hypertension I10
[2023-03-09] MEDS ORDERED: ACETAMINOPHEN 1000 MG/100 ML IV IV ONE (18:57)
[2023-03-09] MEDS ORDERED: LACTATED RINGER'S 1,000 ML IV ONE (19:16)
--- NOTE | 2023-03-09 19:23 | Fluoroscopy Report ---
FL retrograde includes kub CLINICAL HISTORY: CYSTO/RETROGRADE STENT RT COMPARISON STUDY: Abdomen and pelvis CT 03/09/2023. FLUOROSCOPY TIME: 19 seconds FLUOROSCOPY IMAGES: 4 Ka,r: 2.8 mGy FINDINGS: Retrograde placement of a right ureteral stent. Only the proximal portion of the stent is i dentified and appears in good position. IMPRESSION: Fluoroscopic assistance as above. ACT 112: Negative or not required by law. Electronically signed by: Willi Real M.D. 03/09/2023 7:21 PM
[2023-03-09] MEDS ORDERED: HYDROmorphone INJ 0.5 MG/0.5 ML SYR IV PRN (20:00)
[2023-03-09 20:59] LABS: BUN Creatinine Ratio 17.6 (10-20); Calcium 8.1 mg/dl (8.6-10.3); Creatinine Clr Calc Pharmacy 49.8 ml/min; Est GFR (African American) 39.1 ml/min; Est GFR (Non-African American) 33.7 ml/min; Potassium 3.6 mmol/L (3.5-5.1)
[2023-03-09] MEDS: PLASMA-LYTE A 1,000 ML IV SCH (22:21)
[2023-03-10] MEDS: PLASMA-LYTE A 1,000 ML IV SCH ×2 (05:33→13:19)
[2023-03-10 07:08] LABS: Basophils # (auto) 0.02 K/uL (0.00-0.20); Basophils % (auto) 0.4 %; Hematocrit (blood only) 44.2 % (42.0-52.0); Hemoglobin 14.6 g/dl (14.0-18.0); Immature Granulocytes # (auto) 0.02 K/uL (0.01-0.20); Immature Granulocytes % (auto) 0.4 %; Lymphocytes # (auto) 0.48 K/uL (1.20-3.40); Mean Corpuscular Hemoglobin 28.5 pg (25.0-34.0); Mean Corpuscular Volume 86.2 fL (80.0-100.0); Mean Platelet Volume 9.7 fL (9.4-12.4); Monocytes # (auto) 0.27 K/uL (0.11-0.59); Monocytes % (auto) 5.1 %; Neutrophils # (auto) 4.54 K/uL (1.40-6.50); Neutrophils % (auto) 85.1 %; Platelet Count 160 K/uL (130-400); RDW Coefficient of Variation 13.7 % (11.5-14.5); RDW Standard Deviation 43.4 fL (36.4-46.3); Red Blood Count 5.13 M/uL (4.70-6.10); White Blood Count 5.33 K/ul (4.8-10.8)
[2023-03-10 07:46] LABS: Albumin Level 3.4 gm/dl (3.4-5.0); Bilirubin,Total 1.5 mg/dl (0.2-1.0); Potassium 3.5 mmol/L (3.5-5.1)
[2023-03-10 07:47] LABS: Potassium 3.5 mmol/L (3.5-5.1)
[2023-03-10 07:53] LABS: Albumin Globulin Ratio 1.1 (0.9-2); BUN Creatinine Ratio 19.3 (10-20); BUN Creatinine Ratio 20.1 (10-20); Creatinine Clr Calc Pharmacy 65.5 ml/min; Creatinine Clr Calc Pharmacy 66.3 ml/min; Est GFR (African American) 55.3 ml/min; Est GFR (African American) 56.1 ml/min; Est GFR (Non-African American) 47.7 ml/min; Est GFR (Non-African American) 48.4 ml/min; Total Protein 6.4 gm/dl (6.0-8.3)
--- NOTE | 2023-03-10 08:02 | XRay Report ---
XR chest 1V portable HISTORY: hypoxia COMPARISON: Chest 07/06/2020. Abdomen and pelvis CT 03/09/2023. FINDINGS: No pneumothorax. No pleural effusions. There are low lung volumes. The cardiac silhouette i s mildly enlarged. The left lung is clear. Patchy and linear right basilar densities are again noted. This is similar to the prior CT examination. IMPRESSION: 1. Right basilar densities again noted. This may represent atelectasis or pneumonia. Follow-up chest x-ray in one to 2 months is recommended to ensure resolution. 2. Low lung volumes with prominence of the cardiac silhouette. ACT 112: Negative or not required by law. Electronically signed by: Willi Real M.D. 03/10/2023 8:01 AM
--- NOTE | 2023-03-10 09:25 | Urology Progress Note ---
Date of Service March 10, 2023 Assessment & Plan (1) Calculus of proximal right ureter: (2) Sepsis secondary to UTI: (3) MIGDALIA (acute kidney injury): Plan: 47-year-old male admitted with an 8 mm right proximal ureteral calculus, MIGDALIA and sepsis secondary to UTI. Pt POD#1 s/p cystoscopy, retrograde pyelogram and right ureteral stent placement Currently afebrile; febrile yesterday evening with Tmax 39.5 Labs reviewedcreatinine improved to 1.64, WBC 5.33, hemoglobin 14.6 Urine culture showing prelim E. coli Blood cultures are pending Continue broad-spectrum antibiotics and narrow per sensitivity data when available Tolerating right ureteral stent with mild bother Okay to d/c from perspective when medically stable Recommend d/c with course of appropriate PO antibiotics, Tamsulosin, prn Pyridium and prn Oxybutynin for stent management Expected clinical course reviewed, all questions answered Will arrange outpatient follow-up with our service to discuss definitive stone management Admission and Anticipated Discharge Date Admission Date: March 09, 2023 Subjective Patient seen and examined at bedside this morning, chart reviewed Patient febrile yesterday evening, Tmax 39.5 Reports feeling better this morning Mild right flank discomfort Voiding spontaneously Hematuria clearing No nausea or vomiting Review of Systems Constitutional: as per Subjective / HPI Gastrointestinal: as per Subjective / HPI Genitourinary: + as per Subjective / HPI Physical Exam Physical Exam: General: well-appearing, no acute distress HEENT: Normocephalic, mucous membranes moist Pulmonary: Nonlabored respirations Abdomen: Nondistended Extremities: Moves all 4 spontaneously Neuro: No gross deficits Psych: alert and oriented, normal mood Skin: Warm, dry, no rashes noted Results & Data Vital Signs (Past 12 Hours) Vital Signs Temp Pulse Pulse Resp BP Pulse Ox O2 Del Method 03/10/23 08:20 37.2 C 99 H 19 143/91 H 97 Room Air 03/10/23 03:11 36.4 C L 80 18 128/88 99 Nasal Cannula 03/09/23 23:26 37.1 C 81 18 115/83 99 Room Air 03/09/23 23:00 87 O2 Flow Rate 03/10/23 08:20 03/10/23 03:11 2 03/09/23 23:26 03/09/23 23:00 PG Care Time/CCT Total # of Minutes Spent Total Time Spent with Patient: Total time spent is greater than 50% in coordination of care (as documented) at patient's floor/unit and/or counseling patient: Coding Level of Care Code 32145 SUB INP/OBS CARE 05/27MIN Diagnoses Calculus of proximal right ureter N20.1 Sepsis secondary to UTI A41.9; N39.0 MIGDALIA (acute kidney injury) N17.9
[2023-03-10] MEDS: ATORVASTATIN 20 MG TAB PO SCH (09:29)
[2023-03-10] MEDS: METOPROLOL TARTRATE 25 MG TAB PO SCH (09:29)
[2023-03-10] MEDS: PANTOprazole 40 MG TAB PO SCH (09:29)
[2023-03-10] MEDS: ACETAMINOPHEN 325 MG TAB PO PRN ×2 (11:09→19:52)
[2023-03-10] MEDS ORDERED: TAMSULOSIN HCL 0.4 MG CAP PO ONE (14:32)
[2023-03-10] MEDS ORDERED: PHENAZOPYRIDINE HCL 100 MG TAB PO PRN (14:32)
--- NOTE | 2023-03-10 14:33 | Hospitalist Progress Note ---
Date of Service March 10, 2023 Assessment & Plan (1) Sepsis secondary to UTI: Plan: e.coli UTI slowly improving although still having fevers ?right sided pyelonephritis present? continue rocephin await final urine cx blood cx's remain negative supportive care (2) Calculus of proximal right ureter: Plan: 8mm right sided stone s/p [place] [facility] [place] appreciate their assistance will need definitive stone management and stent retrieval after d/c resume flomax pyridium prn cont IVF but lower rate to 50/hr as he is tolerating diet (3) MIGDALIA (acute kidney injury): Plan: Obstructive 2nd R-sided ureteral stent s/p stent Pre-renal - due to #1 above Creatinine improved to 1.6 today cont IV fluids and repeat BMP a m (4) Hypoxia: Plan: transient cxr with RLL infiltrates CT a/p lung cuts with RLL infiltrates as well pneumonia process? cont rocephin add doxy for atypical coverage check a COVID swab (5) Hyperlipidemia: Plan: Continue atorvastatin daily (6) GERD (gastroesophageal reflux disease): Plan: Continue pantoprazole 40mg PO daily (7) Hypertension: Plan: Continue metoprolol daily with hold parameters (8) Chronic cough: Plan: [place] [facility] [place]c needs PFTs post nasal drip syndrome? asthmatic condition? other? RLL findings on imaging - connected to chronic cough?? (9) Gallstones: Plan: incidental finding d/w patient today mildly abnormal LFTs -- repeat am he is not having RUQ pain thus I do not suspect acute cholecystitis Plan updated at bedside advance diet to regular progressing Admission and Anticipated Discharge Date Admission Date: March 09, 2023 Subjective tele overnight wnl he denies any LUTS except for mild right sided flank discomfort when he voids along with mild gross hematuria main complaints are that of fever spikes - "feels terrible during them" also with chronic cough cough is sometimes productive in the am, especially after getting in the shower clears his throat a lot had what sounds like a pH probe study by GI due to the chronic cough? told it was normal? has never seen pulmonary tolerating clear liquids Review of Systems Review of Systems: gen - fevers - ongoing; energy - fair cv - no chest pain pulm - denies dyspnea GI - no abd pain or N/V Physical Exam Physical Exam: gen - NAD, sitting in chair, coughing at times mouth - MMM neck - no JVD heart - RRR, s1 s2, no murmur lungs - CTA b/l; no rales, no wheeze abd - soft NT ND BS+; no flank tenderness on right ext - no edema, pulses 2+ b/l Results & Data Results & Data Vital Signs (Past 12 Hours) Vital Signs Temp Pulse Resp BP Pulse Ox O2 Del Method O2 Flow Rate 03/10/23 12:00 36.9 C 03/10/23 11:20 39.2 C H 94 H 20 128/84 91 Room Air 03/10/23 11:08 39.2 C H 03/10/23 08:20 37.2 C 99 H 19 143/91 H 97 Room Air 03/10/23 03:11 36.4 C L 80 18 128/88 99 Nasal Cannula 2 Laboratory Results Laboratory Results - last 24 hr 03/10/23 03/10/23 03/10/23 06:51 06:51 06:51 WBC 5.33 RBC 5.13 Hgb 14.6 Hct 44.2 MCV 86.2 MCH 28.5 MCHC 33.0 RDW Std Deviation 43.4 RDW Coeff of Yony 13.7 Plt Count 160 MPV 9.7 Immature Gran % (Auto) 0.4 Neut % (Auto) 85.1 Lymph % (Auto) 9.0 [place] % (Auto) 5.1 Eos % (Auto) 0.0 Baso % (Auto) 0.4 Neut # (Auto) 4.54 Lymph # (Auto) 0.48 L [place] # (Auto) 0.27 Eos # (Auto) 0.00 Baso # (Auto) 0.02 Immature Gran # (Auto) 0.02 Sodium 137 137 Potassium 3.5 3.5 Chloride 102 Carbon Dioxide Anion Gap BUN Creatinine Est Cr Clr Drug Dosing Est GFR ( Amer) Est GFR (Non-Af Amer) BUN/Creatinine Ratio Glucose Calcium Total Bilirubin AST ALT Alkaline Phosphatase Total Protein Albumin Globulin Albumin/Globulin Ratio SARS-CoV-2 (PCR) 03/10/23 03/10/23 03/10/23 06:51 06:51 06:51 WBC RBC Hgb Hct MCV MCH MCHC RDW Std Deviation RDW Coeff of Yony Plt Count MPV Immature Gran % (Auto) Neut % (Auto) Lymph % (Auto) [place] % (Auto) Eos % (Auto) Baso % (Auto) Neut # (Auto) Lymph # (Auto) [place] # (Auto) Eos # (Auto) Baso # (Auto) Immature Gran # (Auto) Sodium Potassium Chloride 102 Carbon Dioxide 29 29 Anion Gap 6 6 BUN 32 H Creatinine Est Cr Clr Drug Dosing Est GFR ( Amer) Est GFR (Non-Af Amer) BUN/Creatinine Ratio Glucose Calcium Total Bilirubin AST ALT Alkaline Phosphatase Total Protein Albumin Globulin Albumin/Globulin Ratio SARS-CoV-2 (PCR) 03/10/23 03/10/23 03/10/23 06:51 06:51 06:51 WBC RBC Hgb Hct MCV MCH MCHC RDW Std Deviation RDW Coeff of Yony Plt Count MPV Immature Gran % (Auto) Neut % (Auto) Lymph % (Auto) [place] % (Auto) Eos % (Auto) Baso % (Auto) Neut # (Auto) Lymph # (Auto) [place] # (Auto) Eos # (Auto) Baso # (Auto) Immature Gran # (Auto) Sodium Potassium Chloride Carbon Dioxide Anion Gap BUN 33 H Creatinine 1.66 H D 1.64 H Est Cr Clr Drug Dosing 65.5 66.3 Est GFR ( Amer) 55.3 Est GFR (Non-Af Amer) BUN/Creatinine Ratio Glucose Calcium Total Bilirubin AST ALT Alkaline Phosphatase Total Protein Albumin Globulin Albumin/Globulin Ratio SARS-CoV-2 (PCR) 03/10/23 03/10/23 03/10/23 06:51 06:51 06:51 WBC RBC Hgb Hct MCV MCH MCHC RDW Std Deviation RDW Coeff of Yony Plt Count MPV Immature Gran % (Auto) Neut % (Auto) Lymph % (Auto) [place] % (Auto) Eos % (Auto) Baso % (Auto) Neut # (Auto) Lymph # (Auto) [place] # (Auto) Eos # (Auto) Baso # (Auto) Immature Gran # (Auto) Sodium Potassium Chloride Carbon Dioxide Anion Gap BUN Creatinine Est Cr Clr Drug Dosing Est GFR ( Amer) 56.1 Est GFR (Non-Af Amer) 47.7 48.4 BUN/Creatinine Ratio 19.3 20.1 H Glucose 108 H Calcium Total Bilirubin AST ALT Alkaline Phosphatase Total Protein Albumin Globulin Albumin/Globulin Ratio SARS-CoV-2 (PCR) 03/10/23 03/10/23 06:51 06:51 WBC RBC Hgb Hct MCV MCH MCHC RDW Std Deviation RDW Coeff of Yony Plt Count MPV Immature Gran % (Auto) Neut % (Auto) Lymph % (Auto) [place] % (Auto) Eos % (Auto) Baso % (Auto) Neut # (Auto) Lymph # (Auto) [place] # (Auto) Eos # (Auto) Baso # (Auto) Immature Gran # (Auto) Sodium Potassium Chloride Carbon Dioxide Anion Gap BUN Creatinine Est Cr Clr Drug Dosing Est GFR ( Amer) Est GFR (Non-Af Amer) BUN/Creatinine Ratio Glucose 107 H Calcium 8.0 L 8.0 L Total Bilirubin 1.5 H AST 58 H ALT 31 Alkaline Phosphatase 73 Total Protein 6.4 D Albumin 3.4 Globulin 3.0 Albumin/Globulin Ratio 1.1 SARS-CoV-2 (PCR) Diagnostic Findings blood cx's neg urine cx - e. coli , sens pending PG Care Time/CCT Total # of Minutes Spent Total Time Spent with Patient: Total time spent is greater than 50% in coordination of care (as documented) at patient's floor/unit and/or counseling patient: Coding Level of Care Code 53271 SUB INP/OBS CARE 3/50MIN Diagnoses Sepsis secondary to UTI A41.9; N39.0 Calculus of proximal right ureter N20.1 MIGDALIA (acute kidney injury) N17.9 Hypoxia R09.02 Hyperlipidemia E78.5 GERD (gastroesophageal reflux disease) K21.9 Hypertension I10 Chronic cough R05.3 Gallstones K80.20
[2023-03-10] MEDS: BENZONATATE 100 MG CAPSULE PO SCH ×2 (15:29→20:46)
[2023-03-10] MEDS: guaiFENesin 600 MG TABCR PO SCH ×2 (15:30→20:47)
--- NOTE | 2023-03-10 15:56 | Electrocardiogram Report ---
Test Reason : Blood Pressure : / mmHG Vent. Rate : 130 BPM Atrial Rate : 130 BPM P-R Int : 150 ms QRS Dur : 074 ms QT Int : 294 ms P-R-T Axes : 040 030 053 degrees QTc Int : 432 ms Poor data quality, interpretation may be adversely affected Sinus tachycardia Otherwise normal ECG When compared with ECG of 20-DEC-2009 09:12, Vent. rate has increased BY 64 BPM Confirmed by Harvey Marcos [id number]) on 03/10/2023 3:56:16 PM Referred By: Jose Oneill Confirmed By:Harvey Marcos
[2023-03-10] MEDS: cefTRIAXone SODIUM 2,000 MG in DEXTROSE 5 % MINI-B 50 ML IV SCH (16:22)
[2023-03-10] MEDS: DOXYCYCLINE HYCLATE 100 MG CAP PO SCH (21:30)
[2023-03-10] MEDS ORDERED: MELATONIN 3 MG TAB PO PRN (21:48)
[2023-03-11 07:02] LABS: Albumin Globulin Ratio 1.1 (0.9-2); Albumin Level 3.1 gm/dl (3.4-5.0); BUN Creatinine Ratio 14.9 (10-20); Bilirubin,Total 0.9 mg/dl (0.2-1.0); Calcium 7.8 mg/dl (8.6-10.3); Creatinine Clr Calc Pharmacy 90.2 ml/min; Est GFR (Non-African American) 69.9 ml/min; Globulin 2.7 gm/dl (2.5-4.0); Potassium 3.4 mmol/L (3.5-5.1); Total Protein 5.8 gm/dl (6.0-8.3)
[2023-03-11] MEDS: guaiFENesin 600 MG TABCR PO SCH ×2 (08:41→20:31)
[2023-03-11] MEDS: BENZONATATE 100 MG CAPSULE PO SCH ×3 (08:41→20:31)
[2023-03-11] MEDS: ATORVASTATIN 20 MG TAB PO SCH (08:42)
[2023-03-11] MEDS: METOPROLOL TARTRATE 25 MG TAB PO SCH (08:42)
[2023-03-11] MEDS: TAMSULOSIN HCL 0.4 MG CAP PO SCH (08:42)
[2023-03-11] MEDS: DOXYCYCLINE HYCLATE 100 MG CAP PO SCH ×2 (08:42→20:32)
[2023-03-11] MEDS: PANTOprazole 40 MG TAB PO SCH (08:43)
[2023-03-11] MEDS: cefTRIAXone SODIUM 2,000 MG in DEXTROSE 5 % MINI-B 50 ML IV SCH (15:22)
[2023-03-11] MEDS ORDERED: POTASSIUM CHLORIDE CRTAB 20 MEQ TABCR PO STA (16:07)
[2023-03-11 16:47] LABS: A calco-baum cmplx NotReported Not Detected (NotDetected); Bact fragilis Not Reported Not Detected (NotDetected); C auris Not Reported Not Detected (NotDetected); CTX-M Resistant Gene Not Detected (NotDetected); Calbicans Not Reported Not Detected (NotDetected); Candida glabrata Not Reported Not Detected (NotDetected); Candida krusei Not Reported Not Detected (NotDetected); Cneoformans/gatti Not Reported Not Detected (NotDetected); Cparapsilosis Not Reported Not Detected (NotDetected); E cloacae compx Not Reported Not Detected (NotDetected); Efaecalis Not Reported Not Detected (NotDetected); Efaecium Not Reported Not Detected (NotDetected); Enterobacterales Not Reported DETECTED (NotDetected); Escherichia coli Not Reported DETECTED (NotDetected); H influenzae Not Reported Not Detected (NotDetected); IMP Resistant Gene Not Detected (NotDetected); K aerogenes Not Reported Not Detected (NotDetected); KPC Resistant Gene Not Detected (NotDetected); Koxytoca Not Reported Not Detected (NotDetected); Kpneumoniae grp Not Reported Not Detected (NotDetected); Lmonocyt Not Reported Not Detected (NotDetected); N meningitidis Not Reported Not Detected (NotDetected); NDM Resistant Gene Not Detected (NotDetected); OXA 48 Like Resistant Gene Not Detected (NotDetected); P aeruginosa Not Reported Not Detected (NotDetected); Proteus spp Not Reported Not Detected (NotDetected); Salmonella spp Not Reported Not Detected (NotDetected); Smarcescens Not Reported Not Detected (NotDetected); Staph lugdunensis Not Reported Not Detected (NotDetected); Staph spp. Not Reported Not Detected (NotDetected); Staphaureus Not Reported Not Detected (NotDetected); Staphepi Not Reported Not Detected (NotDetected); Stenmaltophilia Not Reported Not Detected (NotDetected); Strep agal(GrpB) Not Reported Not Detected (NotDetected); Strep pneum Not Reported Not Detected (NotDetected); Strep pyog (GrpA) Not Reported Not Detected (NotDetected); Strep spp Not Reported Not Detected (NotDetected); VIM Resistant Gene Not Detected (NotDetected); mcr-1 Colistin Resistant Gene Not Detected (NotDetected)
[2023-03-11 17:20] LABS: Enterobacterales DETECTED (NotDetected)
--- NOTE | 2023-03-11 20:13 | Hospitalist Progress Note ---
Date of Service March 11, 2023 Assessment & Plan (1) Bacteremia: Plan: 1 out of 4 admission blood cx's + for GNR; biofire panel confirms e.coli. source - urinary tract. took 48 hours for this bottle to show growth suggesting low bacterial load in the blood. [id number] the bacteremia explains his ongoing fevers. can't exclude a component of pyelonephritis on the right also contributing his fevers. repeat blood cx's were sent this afternoon cont rocephin - urine cx with e.coli - sensitive to rocephin. await final blood cx results. plan - total 14 days of IV/PO abx. (2) Sepsis secondary to UTI: Plan: e.coli UTI - sens to rocephin continue such blood cx's as above in #1 ongoing fevers likely from bacteremia +/- component of R sided pyelonephritis? either way we are looking at 14 days of Rx if fevers persist obtain renal u/s to r/o renal abscess, etc. (3) Calculus of proximal right ureter: Plan: 8mm right sided stone s/p ureteral stent placement by [facility] [place] [facility] appreciate their assistance will need definitive stone management and stent retrieval after d/c resumed flomax pyridium prn stop IV fluids - eating/drinking well (4) MIGDALIA (acute kidney injury): Plan: Obstructive 2nd R-sided ureteral stent s/p stent Pre-renal - due to #1 above peak Cr 2.2 Cr 1.2 today resolved (5) Hypoxia: Plan: transient cxr with RLL infiltrates CT a/p lung cuts with RLL infiltrates as well pneumonia process? cont rocephin cont doxy for atypical coverage COVID swab negative (6) Hyperlipidemia: Plan: Continue atorvastatin daily (7) GERD (gastroesophageal reflux disease): Plan: Continue pantoprazole 40mg PO daily (8) Hypertension: Plan: Continue metoprolol daily with hold parameters (9) Chronic cough: Plan: refer to [facility] [place] Pulm post-d/c needs PFTs post nasal drip syndrome? asthmatic condition? other? RLL findings on imaging - connected to chronic cough?? interestingly no response to mucinex/tessalon consider anti-histamine & nasal steroid (10) Gallstones: Plan: incidental finding mildly abnormal LFTs -- repeat today show improvement he is not having RUQ pain thus I do not suspect acute cholecystitis reactive to #1, #2? Plan updated by phone no discharge today due to fevers and #1 above Admission and Anticipated Discharge Date Admission Date: March 09, 2023 Subjective patient continues with intermittent temperature spikes he feels poorly with his fevers; when fevers resolve he feels much better minimal right-sided flank/abd discomfort with voiding but otherwise no LUTS minimal gross hematuria eating/drinking well late this afternoon we were informed by microbiology that 05/06 admission blood cx's was + for GNR; biofire panel --> e.coli tele - wnl overnight Review of Systems Review of Systems: gen - ongoing intermittent fevers; some fatigue cv - no chest pain pulm - still with ongoing cough; no improvement with mucinex/tessalon; no dyspnea GI - no N/V ; 2 loose stools yesterday Physical Exam Physical Exam: gen - NAD, sitting in chair, coughing at times like previous; looks fair mouth - MMM neck - no JVD heart - RRR, s1 s2, no murmur lungs - minimal rales R base, otherwise CTA b/l; no wheezes abd - soft NT ND BS+; no flank tenderness on right or left ext - no edema, pulses 2+ b/l Results & Data Results & Data Vital Signs (Past 12 Hours) Vital Signs Temp Pulse Resp BP Pulse Ox O2 Del Method 03/11/23 19:33 37.1 C 85 18 143/94 H 95 Room Air 03/11/23 15:43 37.9 C H 87 18 131/86 96 Room Air 03/11/23 12:24 37.8 C H 79 18 139/91 98 Room Air 03/11/23 09:00 37.5 C 94 H 17 151/90 H 96 Room Air Laboratory Results Laboratory Results - last 24 hr 03/09/23 03/10/23 03/11/23 15:26 Unknown 06:15 Sodium 135 L Potassium 3.4 L Chloride 101 Carbon Dioxide 29 Anion Gap 5 BUN 18 Creatinine 1.21 D Est Cr Clr Drug Dosing 90.2 Est GFR ( Amer) 81.0 Est GFR (Non-Af Amer) 69.9 BUN/Creatinine Ratio 14.9 Glucose 91 Calcium 7.8 L Total Bilirubin 0.9 D AST 57 H ALT 32 Alkaline Phosphatase 77 Total Protein 5.8 L Albumin 3.1 L Globulin 2.7 Albumin/Globulin Ratio 1.1 SARS-CoV-2 (PCR) NEGATIVE Enterobacterales (PCR) DETECTED A E. coli (PCR) DETECTED A mcr-1 Colistin Res Gene PCR Not Detected blaIMP Car res Gene PCR Not Detected KPC-Carbap Res Gene PCR Not Detected blaNDM Car Res Gene PCR Not Detected OXA-48 Carbapenem Resis Gene (PCR) Not Detected blaVIM Car Res Gene PCR Not Detected CTX-M Gene Resistance (PCR) Not Detected Bld Cult ID Panel PCR See PCR Comment Diagnostic Findings Microbiology 03/09/23 15:40 Blood Aerobic Blood Culture - Preliminary No growth in Aerobic bottle after 48 hours. 03/09/23 15:40 Blood Anaerobic Blood Culture - Preliminary No growth in Anaerobic bottle after 48 hours. 03/09/23 15:26 Blood Aerobic Blood Culture - Preliminary No growth in Aerobic bottle after 48 hours. 03/09/23 15:26 Blood Anaerobic Blood Culture - Preliminary Gram negative bacilli 03/09/23 11:58 Urine,Clean Catch Urine Culture - Final Escherichia coli PG Care Time/CCT Total # of Minutes Spent Total Time Spent with Patient: Total time spent is greater than 50% in coordination of care (as documented) at patient's floor/unit and/or counseling patient: Coding Level of Care Code 50177 SUB INP/OBS CARE 3/50MIN Diagnoses Bacteremia R78.81 Sepsis secondary to UTI A41.9; N39.0 Calculus of proximal right ureter N20.1 MIGDALIA (acute kidney injury) N17.9 Hypoxia R09.02 Hyperlipidemia E78.5 GERD (gastroesophageal reflux disease) K21.9 Hypertension I10 Chronic cough R05.3 Gallstones K80.20
[2023-03-12 07:29] LABS: Basophils # (auto) 0.02 K/uL (0.00-0.20); Basophils % (auto) 0.3 %; Eosinophils # (auto) 0.04 K/uL (0.00-0.50); Eosinophils % (auto) 0.7 %; Hematocrit (blood only) 43.2 % (42.0-52.0); Hemoglobin 14.2 g/dl (14.0-18.0); Immature Granulocytes # (auto) 0.02 K/uL (0.01-0.20); Immature Granulocytes % (auto) 0.3 %; Lymphocytes # (auto) 1.44 K/uL (1.20-3.40); Lymphocytes % (auto) 24.4 %; Mean Corpuscular Hgb Conc 32.9 g/dL (32.0-36.0); Mean Platelet Volume 9.9 fL (9.4-12.4); Monocytes # (auto) 0.77 K/uL (0.11-0.59); Monocytes % (auto) 13.1 %; Neutrophils % (auto) 61.2 %; Platelet Count 214 K/uL (130-400); RDW Coefficient of Variation 13.2 % (11.5-14.5); RDW Standard Deviation 41.1 fL (36.4-46.3); Red Blood Count 5.08 M/uL (4.70-6.10); White Blood Count 5.89 K/ul (4.8-10.8)
[2023-03-12 07:48] LABS: BUN Creatinine Ratio 13.5 (10-20); Calcium 8.7 mg/dl (8.6-10.3); Est GFR (African American) 97.3 ml/min; Est GFR (Non-African American) 83.9 ml/min; Potassium 3.2 mmol/L (3.5-5.1)
[2023-03-12] MEDS: BENZONATATE 100 MG CAPSULE PO SCH ×2 (08:20→14:15)
[2023-03-12] MEDS: POTASSIUM CHLORIDE CRTAB 20 MEQ TABCR PO SCH ×3 (08:20→20:52)
[2023-03-12] MEDS: guaiFENesin 600 MG TABCR PO SCH (08:20)
[2023-03-12] MEDS: DOXYCYCLINE HYCLATE 100 MG CAP PO SCH ×2 (08:20→20:51)
[2023-03-12] MEDS: PANTOprazole 40 MG TAB PO SCH (08:21)
[2023-03-12] MEDS: METOPROLOL TARTRATE 25 MG TAB PO SCH (08:21)
[2023-03-12] MEDS: ATORVASTATIN 20 MG TAB PO SCH (08:22)
[2023-03-12] MEDS: TAMSULOSIN HCL 0.4 MG CAP PO SCH (08:22)
[2023-03-12] MEDS: cefTRIAXone SODIUM 2,000 MG in DEXTROSE 5 % MINI-B 50 ML IV SCH (15:48)
[2023-03-12] MEDS: FEXOFENADINE HCL 180 MG TAB PO SCH (17:40)
[2023-03-12] MEDS ORDERED: METOPROLOL TARTRATE 1 MG/ML VIAL IV STA (19:00)
--- NOTE | 2023-03-12 20:15 | Hospitalist Progress Note ---
Date of Service March 12, 2023 Assessment & Plan (1) Bacteremia: Plan: 1 out of 4 admission blood cx's + for GNR; biofire panel confirms e.coli. source - urinary tract. took 48 hours for this bottle to show growth suggesting low bacterial load in the blood. [id number] the bacteremia explained his ongoing fevers. can't exclude a component of pyelonephritis on the right also contributing his fevers. repeat blood cx's 03/11/23 remain negative. other bottles from 03/09/23 also negative (3 out of 4). cont rocephin - urine cx with e.coli - sensitive to rocephin. await final blood cx results. should result tomorrow. plan - total 14 days of IV/PO abx. at discharge - levaquin or cipro. (2) Sepsis secondary to UTI: Plan: e.coli UTI - sens to rocephin continue such blood cx's as above in #1 ongoing fevers likely from bacteremia +/- component of R sided pyelonephritis? either way we are looking at 14 days of Rx as above in #1 if fevers persist/recur obtain renal u/s to r/o renal abscess, etc. (3) Calculus of proximal right ureter: Plan: 8mm right sided stone s/p ureteral stent placement [place] [facility] [place] [facility] 03/09/23 - Dr Oneill appreciate their assistance will need definitive stone management and stent retrieval after d/c cont flomax pyridium prn (4) MIGDALIA (acute kidney injury): Plan: Obstructive 2nd R-sided ureteral stent s/p stent Pre-renal / sepsis associated ATN - due to #1 above peak Cr 2.2 Cr 1 today resolved (5) Hypoxia: Plan: transient cxr with RLL infiltrates CT a/p lung cuts with RLL infiltrates as well pneumonia process? cont rocephin cont doxy for atypical coverage COVID swab negative (6) Hyperlipidemia: Plan: Continue atorvastatin daily (7) GERD (gastroesophageal reflux disease): Plan: Continue pantoprazole 40mg PO daily (8) Hypertension: Plan: Continue metoprolol daily Can resume MARITZA tomorrow (9) Chronic cough: Plan: refer to [facility] [place]m post-d/c needs PFTs post nasal drip syndrome? asthmatic condition? other? RLL findings on imaging - connected to chronic cough?? interestingly no response to mucinex/tessalon will stop the mucinex/tessalone start PO anti-histamine & nasal steroid (10) Gallstones: Plan: incidental finding mildly abnormal LFTs -- repeat today show improvement he is not having RUQ pain thus I do not suspect acute cholecystitis reactive to #1, #2? Plan home tomorrow? Admission and Anticipated Discharge Date Admission Date: March 09, 2023 Subjective tele overnight wnl sitting comfortably in the chair during the visit "I feel good" appetite is back to normal gross hematuria nearly resolved still with slight discomfort towards the end of voiding (feels pain right side of urinary tract) still with cough mucinex/tessalon have not helped continues to clear throat Review of Systems Review of Systems: gen - fevers have improved; no chills cv - no chest pain GI - no nausea/emesis pulm - no dyspnea or REYES Physical Exam Physical Exam: gen - NAD, sitting in chair, looks very good today mouth - MMM neck - no JVD heart - RRR, s1 s2, no murmur lungs - scant rales R base, otherwise CTA b/l; no wheezes abd - soft NT ND BS+; no flank tenderness on right or left ext - no edema, pulses 2+ b/l psych - a/o x 3 Results & Data Results & Data Vital Signs (Past 12 Hours) Vital Signs Temp Pulse Pulse Resp BP Pulse Ox O2 Del Method 03/12/23 19:58 37.6 C H 93 H 18 138/97 97 Room Air 03/12/23 16:46 37.6 C H 90 21 148/105 H 97 Room Air 03/12/23 14:50 81 03/12/23 14:00 37.1 C 84 03/12/23 12:23 37.7 C H 79 21 136/94 97 Room Air Laboratory Results Laboratory Results - last 24 hr 03/12/23 06:23 WBC 5.89 RBC 5.08 Hgb 14.2 Hct 43.2 MCV 85.0 MCH 28.0 MCHC 32.9 RDW Std Deviation 41.1 RDW Coeff of Yony 13.2 Plt Count 214 MPV 9.9 Immature Gran % (Auto) 0.3 Neut % (Auto) 61.2 Lymph % (Auto) 24.4 [place] % (Auto) 13.1 Eos % (Auto) 0.7 Baso % (Auto) 0.3 Neut # (Auto) 3.60 Lymph # (Auto) 1.44 [place] # (Auto) 0.77 H Eos # (Auto) 0.04 Baso # (Auto) 0.02 Immature Gran # (Auto) 0.02 Sodium 137 Potassium 3.2 L Chloride 101 Carbon Dioxide 29 Anion Gap 7 BUN 14 Creatinine 1.04 Est Cr Clr Drug Dosing 105.0 Est GFR ( Amer) 97.3 Est GFR (Non-Af Amer) 83.9 BUN/Creatinine Ratio 13.5 Glucose 79 Calcium 8.7 AST 55 H Diagnostic Findings Microbiology 03/11/23 18:08 Blood Aerobic Blood Culture - Preliminary No growth in Aerobic bottle after 24 hours. 03/11/23 18:08 Blood Anaerobic Blood Culture - Preliminary No growth in Anaerobic bottle after 24 hours. 03/11/23 18:08 Blood Aerobic Blood Culture - Preliminary No growth in Aerobic bottle after 24 hours. 03/11/23 18:08 Blood Anaerobic Blood Culture - Preliminary No growth in Anaerobic bottle after 24 hours. 03/09/23 15:26 Blood Aerobic Blood Culture - Preliminary No growth in Aerobic bottle after 48 hours. 03/09/23 15:26 Blood Anaerobic Blood Culture - Preliminary Gram negative bacilli 03/09/23 15:40 Blood Aerobic Blood Culture - Preliminary No growth in Aerobic bottle after 48 hours. 03/09/23 15:40 Blood Anaerobic Blood Culture - Preliminary No growth in Anaerobic bottle after 48 hours. 03/09/23 11:58 Urine,Clean Catch Urine Culture - Final Escherichia coli PG Care Time/CCT Total # of Minutes Spent Total Time Spent with Patient: Total time spent is greater than 50% in coordination of care (as documented) at patient's floor/unit and/or counseling patient: Coding Level of Care Code 95867 SUB INP/OBS CARE 2/35MIN Diagnoses Bacteremia R78.81 Sepsis secondary to UTI A41.9; N39.0 Calculus of proximal right ureter N20.1 MIGDALIA (acute kidney injury) N17.9 Hypoxia R09.02 Hyperlipidemia E78.5 GERD (gastroesophageal reflux disease) K21.9 Hypertension I10 Chronic cough R05.3 Gallstones K80.20
[2023-03-12] MEDS: ACETAMINOPHEN 325 MG TAB PO PRN (20:51)
[2023-03-13 08:17] LABS: BUN Creatinine Ratio 13.5 (10-20); Calcium 9.2 mg/dl (8.6-10.3); Creatinine Clr Calc Pharmacy 98.9 ml/min; Est GFR (African American) 89.9 ml/min; Est GFR (Non-African American) 77.6 ml/min; Magnesium 2.2 mg/dl (1.7-2.4); Potassium 4.3 mmol/L (3.5-5.1)
[2023-03-13] MEDS: DOXYCYCLINE HYCLATE 100 MG CAP PO SCH (08:30)
[2023-03-13] MEDS: PANTOprazole 40 MG TAB PO SCH (08:31)
[2023-03-13] MEDS: METOPROLOL TARTRATE 25 MG TAB PO SCH (08:32)
[2023-03-13] MEDS: ATORVASTATIN 20 MG TAB PO SCH (08:32)
[2023-03-13] MEDS: TAMSULOSIN HCL 0.4 MG CAP PO SCH (08:32)
[2023-03-13] MEDS: FEXOFENADINE HCL 180 MG TAB PO SCH (08:33)
[2023-03-13] MEDS ORDERED: FLUTICASONE PROPIONATE NA SPR 16 GM BTL SCH (09:00)
--- NOTE | 2023-03-13 12:18 | Discharge Summary ---
Date of Service March 13, 2023 Admission HPI Per Admitting Provider Mark Velez is a 47 year old male who presents to the ER due to nausea, vomiting, fever and flank pain. He reports the flank pain being worse on Wednesday when he felt he had a kidney stone as it felt like previous stones but was trying to manage it at home. Pain would radiate to the groin with difficulty voiding. The flank pain eased up but then developed fever, chills, nausea, vomiting and generalized body aches. T max 103 degrees Fahrenheit at urgent care who advised him to come to the ER. No hematuria. He has had multiple kidney stones in the past requiring stenting and lithotripsy. He took his morning medications today but vomited them all up. The patient was seen post operatively. No current nausea. Pain improved. Mentating normally. No dizziness. Urinated since the operation already Discharge Exam gen - NAD, sitting in chair, looks very good today mouth - MMM neck - no JVD heart - RRR, s1 s2, no murmur lungs - scant rales R base, otherwise CTA b/l; no wheezes abd - soft NT ND BS+; no flank tenderness on right or left ext - no edema, pulses 2+ b/l psych - a/o x 3 Discharge Data Allergies Allergy/AdvReac Type Severity Reaction Status Date / Time No Known Allergies Unverified 07/06/20 21:12 Consultations 03/09/23 16:23 ED Decision to Admit Stat 03/10/23 06:12 Consult Urology Stat Procedures Performed Operation Date: 03/09/23 12:10 Actual Procedures p Cystoscopy, Retrograde Pyelogram, Right Ureteral Stent Placement(Right) - Jero Oneill MD Ordered Studies 03/09/23 [place] retrograde includes kub Routine 03/09/23 12:19 CT abd pelvis IV con only Stat Hospital Course (1) Bacteremia: 1 out of 4 admission blood cx's + for GNR; biofire panel confirms e.coli. source - urinary tract. took 48 hours for this bottle to show growth suggesting low bacterial load in the blood. [id number] the bacteremia explained his ongoing fevers. can't exclude a component of pyelonephritis on the right also contributing his fevers. repeat blood cx's 03/11/23 remain negative. other bottles from 03/09/23 also negative (3 out of 4). cont rocephin - urine cx with e.coli - sensitive to rocephin. await final blood cx results. should result tomorrow. plan - total 14 days of IV/PO abx. at discharge - levaquin or cipro. (2) Sepsis secondary to UTI: e.coli UTI - sens to rocephin continue such blood cx's as above in #1 ongoing fevers likely from bacteremia +/- component of R sided pyelonephritis? either way we are looking at 14 days of Rx as above in #1 if fevers persist/recur obtain renal u/s to r/o renal abscess, etc. (3) Calculus of proximal right ureter: 8mm right sided stone s/p ureteral stent placement by [facility] [place] [facility] 03/09/23 - Dr Oneill appreciate their assistance will need definitive stone management and stent retrieval after d/c cont flomax pyridium prn (4) MIGDALIA (acute kidney injury): Obstructive 2nd R-sided ureteral stent s/p stent Pre-renal / sepsis associated ATN - due to #1 above peak Cr 2.2 Cr 1 today resolved (5) Hypoxia: transient cxr with RLL infiltrates CT a/p lung cuts with RLL infiltrates as well pneumonia process? cont rocephin cont doxy for atypical coverage COVID swab negative (6) Hyperlipidemia: Continue atorvastatin daily (7) GERD (gastroesophageal reflux disease): Continue pantoprazole 40mg PO daily (8) Hypertension: Continue metoprolol daily Can resume MARITZA tomorrow (9) Chronic cough: refer to [facility] [place] [facility] Pulm post-d/c needs PFTs post nasal drip syndrome? asthmatic condition? other? RLL findings on imaging - connected to chronic cough?? interestingly no response to mucinex/tessalon will stop the mucinex/tessalone start PO anti-histamine & nasal steroid (10) Gallstones: incidental finding mildly abnormal LFTs -- repeat today show improvement he is not having RUQ pain thus I do not suspect acute cholecystitis reactive to #1, #2? Plan home tomorrow? Discharge Plan Discharge Items Patient Disposition: Home - Self-Care Reason For Visit: Right sided kidney stone, urinary tract infection Discharge Diagnosis: 1. right-sided 8mm kidney stone - ureteral stent placement by Dr Tung Oneill - 03/09/23 2. e.coli urinary tract infection - resolving 3. e.coli bacteremia (bloodstream infection) - resolving 4. sepsis - resolving 5. question of right-sided pneumonia 6. chronic cough 7. acute kidney injury - resolved 8. gallstones (seen incidentally on CT scan) Activity: As commented below Activity Comment: light activities only over the next 2 weeks Lifting: No more than 10 pounds Exercise/Sports: Wait until after follow-up appointment Driving/Machine Use: Resume 1 day after discharge Non-emergency contact: Primary Care Provider, Specialist and Urologist Call non-emergency contact if: you have any medication questions, your symptoms worsen, your pain is not controlled, your pain is worsening, your pain is unusual for you and your pain is concerning for you Follow-up/Referrals: Brittney Zamora CRNP [Nurse Practitioner] - 03/19/23 12:00 pm Russell Rios MD [Physician] - 03/30/23 9:05 am Zion Conner DO [Primary Care Provider] - (5 days with your family doctor) Diet: Regular Addtl Attending Provider Instructions: Mr Velez, You were hospitalized due to a right-sided 8mm kidney stone that had traveled into the right ureter. This led to a urinary tract infection which then spread into the bloodstream. We call bloodstream infection "bacteremia" or "septicemia." The culprit bacterium that caused both the urinary tract infection & bloodstream infection was e.coli. This is a common urinary tract infection bacterium that we see in both children & adults. You underwent stent placement on the right by Dr Oneill from [facility]. The stent is in your right ureter. You gradually improved with IV antibiotics, IV fluids, and time. In addition to the above you had mentioned that you had had a chronic cough for years. Your chest x-ray appeared to show a very small amount of possible pneumonia in the bottom of the right lung. You received antibiotics for this possible pneumonia. Your cough did not respond to mucinex or tessalon perles. I placed you on an antihistamine (fexofenadine) and a nasal spray (nasocort) in the event "post-nasal drip" is causing your cough. The other possibility for your cough is your lisinopril. Lisinopril is well known to cause a chronic cough in some individuals. Recommendations - 1. Antibiotics for your urinary infection & bloodstream infection - * ciprofloxacin 750mg twice daily x 10 days, first dose TONIGHT * most common side effect from ciprofloxacin is diarrhea * to help prevent diarrhea please take a daily probiotic supplement (prescription called in for this in addition to your antibiotic) 2. Antibiotics for possible, mild pneumonia - * doxycycline 100mg twice daily x 3 days, first dose TONIGHT * most common side effects - stomach upset/heartburn; more rare side effect - a rash if you go out in the sun while taking the antibiotic; this is rare * over the next 3 days, if you spend time outside, please cover up and use sunscreen 3. For cough - * HOLD your lisinopril; if this medication is causing your cough it can take several weeks for the cough to go away even after stopping the medication * take [id number] fexafenadine & nasacort nasal spray on a daily basis * see [facility] as scheduled 4. For urinary pain/urinary burning - * phenazopyridine 100mg every 8 hours as needed * this medication will make your urine and tears orange in color; this is a normal side effect; there is nothing to do for it 5. To help prevent pain from your stent and stone - * take tamsulosin 0.4mg each morning 6. Plenty of fluids over the next few weeks during your recovery. 7. Avoid alcohol x 2 weeks. 8. At this time there is nothing to do for the gallstones other than know that you have them. 9. You may see some mild, intermittent blood in your urine over the next few days from the stent. This is pretty typical. 10. You have another 1-2 weeks of recovery ahead from these infections. This is a normal recovery time period. Be sure to take it easy. Follow-up - see separate section Return to [facility] if - * you have fever spikes over 101 degrees * you see large amounts of blood or clots in your urine * you develop severe diarrhea * you develop severe back, flank, or abdominal pain * you cannot pass your urine * any other concerns It was our pleasure to care for you! -Dr Bush Pending Studies at Discharge: Yes Studies:: repeat blood cultures from 03/11/23 but thus far they are negative (suggesting the blood is sterile again) Stand-Alone Forms: My [facility], Work/School Release, Smoking Cessation Medications and DC Order Prescriptions: New doxycycline hyclate 100 mg Capsule 100 mg PO BID 3 Days Qty: 6 0RF Rx Instructions: first dose PM of 03/13/23. fexofenadine [Allergy Relief (fexofenadine)] 180 mg Tablet 180 mg PO QAM Qty: 30 0RF Rx Instructions: purchase [id number] phenazopyridine [Pyridium] 100 mg Tablet 100 mg PO TID PRN (Reason: urinary pain/burning) Qty: 20 0RF ciprofloxacin HCl 750 mg tablet 750 mg PO BID 10 Days Qty: 20 0RF Rx Instructions: first dose PM of 03/13/23. Saccharomyces boulardii 250 mg capsule 250 mg PO DAILY 10 Days Qty: 10 0RF Rx Instructions: start 03/13/23. triamcinolone acetonide [Nasacort] 55 mcg aerosol,spray 2 spray intranasal DAILY Qty: 16.9 0RF Rx Instructions: administer into each nostril; purchase [id number] Continued famciclovir 125 mg tablet 125 mg PO QAM pantoprazole 40 mg tablet,delayed release (DR/EC) 40 mg PO QAM metoprolol tartrate 25 mg tablet 25 mg PO QAM albuterol sulfate 90 mcg/actuation HFA aerosol inhaler 2 inh inhalation Q6H PRN (Reason: shortness of breath or wheezing or cough) Qty: 18 0RF (DME) Aerochamber Plus Z Stat Spacer See Rx Instructions .ROUTE .MEDSUPPLY Qty: 1 0RF Rx Instructions: As directed with albuterol atorvastatin 20 mg tablet 20 mg PO DAILY Changed tamsulosin [Flomax] 0.4 mg capsule 0.4 mg PO QAM Qty: 1 0RF Held lisinopril 20 mg tablet 20 mg PO DAILY Hold Instructions: HOLD this medication as it could be contributing to your cough; please talk to Dr Bronson about this. Discharge Orders: Discharge Order (Routine); Ordered 03/13/23 Ordered By: Vik Rivera/Other Patient Handouts: What Are Gallstones, Having a Ureteral Stent, Understanding Kidney Stones, Preventing Kidney Stones, ED Chronic Cough [facility] Adult Admission Data Admit Date/Time: 03/09/23 16:28 Attending Provider: Vik Bush Admit Provider: Vik Rutherford Primary Care Provider: Zion Conner Other Providers: Vik Rutherford Other Interventions: Discharge Summary Assessment (RN) Last Done: 03/13/23 12:08 Coding Diagnoses Bacteremia R78.81 Sepsis secondary to UTI A41.9; N39.0 Calculus of proximal right ureter N20.1 MIGDALIA (acute kidney injury) N17.9 Hypoxia R09.02 Hyperlipidemia E78.5 GERD (gastroesophageal reflux disease) K21.9 Hypertension I10 Chronic cough R05.3 Gallstones K80.20
== END 2023-03-13 13:41 | disposition home or self-care (01) | DRG 853 ==
LOC: ED 10:10 → SUATTDRO 16:28 → 2E 16:28
DX: N39.0 Urinary tract infection, site not specified; N20.1 Calculus of ureter; K21.9 Gastro-esophageal reflux disease without esophagitis; A41.9 Sepsis, unspecified organism; B96.20 Unspecified Escherichia coli [E. coli] as the cause of diseases classified elsewhere; I10 Essential (primary) hypertension; N17.0 Acute kidney failure with tubular necrosis; E78.5 Hyperlipidemia, unspecified; J18.9 Pneumonia, unspecified organism; Z79.899 Other long term (current) drug therapy